=== PATIENT | male | born 1945 | race Asian ===

== ENCOUNTER 2017-01-07 10:15 | Emergency (ER) | payer OTHER ==
[2017-01-07 10:20] VITALS: BP 164/69; PULSE 63; TEMP 98.2; BMI 27.1
--- NOTE | 2017-01-07 11:01 | PDOC ---
History of Present Illness - General Chief Complaint: Abscess Boil Stated Complaint: BACK PAIN Time Seen by Provider: 01/07/17 10:30 History Source: Patient Exam Limitations: No Limitations - History of Present Illness Initial Comments: 01/07/17 10:51 Patient is a 71-year-old male history of insulin-dependent diabetes, GERD, enlarged prostate, hypertension, high cholesterol, hypothyroidism. She presents for evaluation of painful mass to back states he had it for the last week and it started as a small painful pimple now it's is larger, red, hard and well defined. Allergies: No known allergies Medications: See medication list Family History: Non-contributory Social History: Denies smoking, alcohol use, or IVDU Review of Systems GENERAL/CONSTITUTIONAL: No fever or chills. No weakness. No weight change. HEAD, EYES, EARS, NOSE AND THROAT: No change in vision. No ear pain or discharge. No sore throat. CARDIOVASCULAR: No chest pain or shortness of breath. RESPIRATORY: No cough, wheezing, or hemoptysis. GASTROINTESTINAL: No nausea, vomiting, diarrhea or constipation. No rectal bleeding. GENITOURINARY: No dysuria, frequency, or change in urination. MUSCULOSKELETAL: No joint or muscle swelling or pain. No neck or back pain. SKIN : Painful, palpable mass to mid upper back, just right of the spine HEMATOLOGIC/LYMPHATIC: No anemia, easy bleeding, or history of blood clots. No lymphadenopathy. ALLERGIC/IMMUNOLOGIC: No hives or skin allergy. No latex allergy. Physical Exam: GENERAL: The patient is awake, alert, and fully oriented, in no acute distress. LUNGS: Breath sounds equal, clear to auscultation bilaterally. No wheezes, and no crackles. HEART: Regular rate and rhythm, normal S1 and S2 without murmur, rub or gallop. ABDOMEN: Soft, nontender, normoactive bowel sounds. No guarding, no rebound. No masses. No bruising or abrasions MUSCULOSKELETAL: Normal range of motion, no edema. No clubbing or cyanosis. No cords, erythema, or tenderness. No CVA Tenderness with fist. NEUROLOGICAL: Cranial nerves II through XII grossly intact. Normal speech, normal gait. SKIN: Warm, Dry, normal turgor. There is a painful mass to mid upper back just right of the spine that measures approximately 3 cm in width and 3 cm in length , no fluctuance, no surrounding erythema or warmth, no evidence of cellulitis. Erythema to middle of area. Past History - Past Medical History Allergies/Adverse Reactions: Allergies Allergy/AdvReac Type Severity Reaction Status Date / Time No Known Drug Allergies Allergy Verified 01/07/17 10:16 Home Medications: Ambulatory Orders Dutasteride [Avodart] 0.5 mg PO DAILY 05/17/14 Glyburide/Metformin HCl [Glyburide-Metformin 5-500 mg] 2 each PO BID 05/28/14 Esomeprazole Magnesium 40 mg PO DAILY 01/30/16 Tamsulosin HCl [Flomax -] 0.4 mg PO BID 01/30/16 Escitalopram Oxalate [Lexapro -] 5 mg PO DAILY #30 tablet 02/01/16 Aspirin/Dipyridamole [Aggrenox -] 1 combo PO BID #60 capsule 02/05/16 Atenolol [Tenormin -] 1 tab PO DAILY #30 tablet 02/05/16 Atenolol [Tenormin -] 50 mg PO DAILY tablet 02/05/16 Insulin Detemir [Levemir Flextouch] 10 unit SQ HS #0 02/05/16 Insulin Sliding Scale [Novolog Vial Sliding Scale -] 1 vial SQ ACHS units 02/04 Losartan Potassium [Cozaar -] 1 tab PO DAILY #30 tablet 02/05/16 Rosuvastatin [Crestor -] 1 tab PO HS #30 tablet 02/05/16 Clindamycin [Cleocin -] 300 mg PO Q6HPO #40 capsule 01/07/17 Anemia: No Asthma: No Cancer: No Cardiac Disorders: No CVA: No COPD: No CHF: No Dementia: No Diabetes: Yes GI Disorders: Yes (GERD) Disorders: Yes (ENLARGED PROSTATE) HTN: Yes Hypercholesterolemia: Yes Liver Disease: No Suicide Attempt (Hx): No Seizures: No Thyroid Disease: Yes - Surgical History Abdominal Surgery: Yes (BILATERAL INGUINAL HERNIA) Appendectomy: No Cardiac Surgery: No Cholecystectomy: No Lung Surgery: No Neurologic Surgery: No Orthopedic Surgery: No - Family Disease History Family Disease History: Diabetes: Father, Heart Disease: Mother - Psycho/Social/Smoking Cessation Hx Anxiety: No Suicidal Ideation: No Smoking History: Never smoked Have you smoked in the past 12 months: No If you are a former smoker, when did you quit?: 30 YEARS AGO Information on smoking cessation initiated: No Hx Alcohol Use: No Drug/Substance Use Hx: No Substance Use Type: None Hx Substance Use Treatment: No *Physical Exam - Vital Signs Last Vital Signs Temp Pulse Resp BP Pulse Ox 98.2 F 63 18 164/69 98 01/07/17 10:18 01/07/17 10:18 01/07/17 10:18 01/07/17 10:18 01/07/17 10:18 Medical Decision Making - Medical Decision Making 01/07/17 11:49 A/P: Patient here for evaluation of abscess to back, area is not fluctuant patient reports that area started as a small little lump and has grown in the last several days. Patient states now notes painful when he lays on his back, there is mild erythema to central mass however there is no surrounding evidence of cellulitis. Case discussed with Dr. West will start patient on clindamycin patient with history of MRSA . Follow-up with either Dr. Rollins or return to emergency department in several days for i&D If any rash, patient to discontinue medication immediately return to ER, also explained to patient if area becomes more red, painful, fever, or new concerns need to return to ER I discussed the physical exam findings, ancillary test results and final diagnoses with the patient. I answered all of the patient's questions. The patient was satisfied with the care received and felt comfortable with the discharge plan and treatment plan. The patient will call to arrange follow-up and will return to the Emergency Department with any new, persistent or worsening symptoms. 01/07/17 12:00 01/07/17 12:01 *DC/Admit/Observation/Transfer Diagnosis at time of Disposition: Abscess - Discharge Dispostion Disposition: HOME Condition at time of disposition: Good Admit: No - Prescriptions Prescriptions: Clindamycin [Cleocin -] 300 mg PO Q6HPO #40 capsule - Referrals Referrals: Timo West MD [Primary Care Provider] - Karri Rollins MD [Staff Physician] - (Dr. Karri Rollins, surgeon [address], [address] floor [place], [place] Tuesdays and Wednesdays between 9 AM and 1 PM Please call [phone] for 24-hour voicemail they will return or call) - Patient Instructions Additional Instructions: Please apply warm soaks to area Please start antibiotics in 3 days if area appears soft follow-up in ER or you may call Dr. Rollins to schedule appointment within the next 3-4 days. Area may need incision and drainage. If any increased redness, swelling, fever, or any other concerns return to ER
== END 2017-01-07 11:08 | disposition home or self-care (01) ==
LOC: JERFT 10:15
DX: L02.212 Cutaneous abscess of back [any part, except buttock and flank] (principal); E11.9 Type 2 diabetes mellitus without complications; Z79.4 Long term (current) use of insulin; K21.9 Gastro-esophageal reflux disease without esophagitis; N40.0 Benign prostatic hyperplasia without lower urinary tract symptoms; I10 Essential (primary) hypertension; E78.00 Pure hypercholesterolemia, unspecified; E03.9 Hypothyroidism, unspecified; Z79.82 Long term (current) use of aspirin; Z86.14 Personal history of Methicillin resistant Staphylococcus aureus infection
CPT/HCPCS: 99281-25

== ENCOUNTER 2017-01-13 11:27 | Emergency (ER) | payer OTHER ==
[2017-01-13 11:36] VITALS: BP 154/72; PULSE 63; TEMP 98.7; BMI 28.8
--- NOTE | 2017-01-13 14:17 | PDOC ---
History of Present Illness - General Chief Complaint: Abscess Boil Stated Complaint: BACK PAIN Time Seen by Provider: 01/13/17 13:36 History Source: Patient Exam Limitations: No Limitations - History of Present Illness Initial Comments: 01/13/17 14:28 71-year-old male presents to the emergency room for evaluation of worsening right upper back abscess. Patient states was seen here last week and was placed on antibiotic which she completed and then was seen by Dr. Rollins who stated to follow-up in one week. Patient states symptoms have worsened and Dr. West recommended that he come to the ER for further evaluation. Patient denies fever , chills and states his glucose has been within normal limits. Patient denies history of MRSA. Timing/Duration: reports: getting worse Severity: Yes: moderate Location: reports: other Respiratory Risk Factors: reports: no cause identified Associated Symptoms: reports: swelling/mass/lumps Past History - Travel Traveled outside of the country in the last 30 days: No Close contact w/someone who was outside of country & ill: No - Past Medical History Allergies/Adverse Reactions: Allergies Allergy/AdvReac Type Severity Reaction Status Date / Time No Known Drug Allergies Allergy Verified 01/13/17 11:33 Home Medications: Ambulatory Orders Dutasteride [Avodart] 0.5 mg PO DAILY 05/17/14 Glyburide/Metformin HCl [Glyburide-Metformin 5-500 mg] 2 each PO BID 05/28/14 Esomeprazole Magnesium 40 mg PO DAILY 01/30/16 Tamsulosin HCl [Flomax -] 0.4 mg PO BID 01/30/16 Escitalopram Oxalate [Lexapro -] 5 mg PO DAILY #30 tablet 02/01/16 Aspirin/Dipyridamole [Aggrenox -] 1 combo PO BID #60 capsule 02/05/16 Atenolol [Tenormin -] 1 tab PO DAILY #30 tablet 02/05/16 Atenolol [Tenormin -] 50 mg PO DAILY tablet 02/05/16 Insulin Detemir [Levemir Flextouch] 10 unit SQ HS #0 02/05/16 Insulin Sliding Scale [Novolog Vial Sliding Scale -] 1 vial SQ ACHS units 02/04 Losartan Potassium [Cozaar -] 1 tab PO DAILY #30 tablet 02/05/16 Rosuvastatin [Crestor -] 1 tab PO HS #30 tablet 02/05/16 Clindamycin [Cleocin -] 300 mg PO Q6HPO #40 capsule 01/07/17 Anemia: No Asthma: No Cancer: No Cardiac Disorders: No CVA: No COPD: No CHF: No Dementia: No Diabetes: Yes GI Disorders: Yes (GERD) Disorders: Yes (ENLARGED PROSTATE) HTN: Yes Hypercholesterolemia: Yes Liver Disease: No Suicide Attempt (Hx): No Seizures: No Thyroid Disease: Yes - Surgical History Abdominal Surgery: Yes (BILATERAL INGUINAL HERNIA) Appendectomy: No Cardiac Surgery: No Cholecystectomy: No Lung Surgery: No Neurologic Surgery: No Orthopedic Surgery: No - Family Disease History Family Disease History: Diabetes: Father, Heart Disease: Mother - Psycho/Social/Smoking Cessation Hx Anxiety: No Suicidal Ideation: No Smoking History: Never smoked Have you smoked in the past 12 months: No If you are a former smoker, when did you quit?: 30 YEARS AGO Information on smoking cessation initiated: No Hx Alcohol Use: No Drug/Substance Use Hx: No Substance Use Type: None Hx Substance Use Treatment: No Patient Lives Alone: No Lives with/in: spouse/SO Review of Systems - Review of Systems Able to Perform ROS?: Yes Constitutional: No: Chills HEENTM: No: Symptoms Reported Musculoskeletal: No: Symptoms Reported Integumentary: Yes: Lumps Neurological: No: Symptoms reported *Physical Exam - Vital Signs Last Vital Signs Temp Pulse Resp BP Pulse Ox 98.7 F 63 18 154/72 100 01/13/17 11:33 01/13/17 11:33 01/13/17 11:33 01/13/17 11:33 01/13/17 11:33 - Physical Exam General Appearance: Yes: Nourished, Appropriately Dressed. No: Apparent Distress HEENT: negative: Pale Conjunctivae Neck: positive: Supple. negative: Lymphadenopathy (R), Lymphadenopathy (L) Respiratory/Chest: positive: Lungs Clear, Normal Breath Sounds. negative: Respiratory Distress, Accessory Muscle Use Cardiovascular: positive: Regular Rhythm, Regular Rate. negative: Murmur Integumentary: positive: Other (3 x 3 cm red raised erythematous warm mass to the right upper back medial of the mid scapular line. Noted fluctuance to center And draining small amount of purulent fluid. Surrounding skin intact.) Neurologic: positive: Motor Strength 5/5 (ambulatory) Procedures - Incision and Drainage I&D Site: Right: Other Betadine cleansed: No Anesthesia: 1% Lidocaine Blade Size: 11 Iodinated Packin/ in Plain Packing: No Complications: none Dressing: No ED Treatment Course - LABORATORY CBC & Chemistry Diagram: 01/13/17 15:05 01/13/17 15:05 Medical Decision Making - Medical Decision Making 01/13/17 16:12 Laboratory Tests 02/05/16 01/13/17 01/13/17 05:50 15:05 15:05 WBC 10.9 H D Hgb 12.8 Hct 38.6 Neutrophils % Y Neutrophils % (Manual) 41 L Lymphocytes % (Manual) 21 Monocytes % (Manual) 5 Eosinophils % (Manual) 33 H Platelet Estimate Adequate Sodium 137 Potassium 4.4 5.6 H D Chloride 102 Carbon Dioxide 28 Anion Gap 7 L BUN 22 H D Creatinine 1.5 H Random Glucose 304 H* D AST 13 L D ALT 28 D 01/13/17 16:30 Patient here for evaluation of right upper back abscess Currently on day 5 of 10 of clindamycin. Patient was seen by Dr. Rollins late last week who told him to follow-up this week for evaluation. Patient states pain to the area has worsened and concerned that the swelling and redness has not decreased significantly. Patient is a known diabetic and states his BGM this morning was 254. Patient ordered for CBC, comp and ultrasound was done at bedside which showed collection measuring 1 x 2 cm. I and D was done with packing placed to wound without difficulty. Upon reviewing patient's labs patient had elevated potassium of 5.6 with a BUN creatinine of 22 1.5. Patient also with a mildly elevated glucose of 304. Patient ordered for 15 g of Kayexalate along with 1 L of normal saline. Patient at this point can be discharged after completion of medication and may follow-up with Dr. West and return to the ED in 2 days for packing removal. Patient is to continue his antibiotics as previously prescribed. *DC/Admit/Observation/Transfer Diagnosis at time of Disposition: Hyperkalemia, Abscess of back, Encounter for incision and drainage procedure - Discharge Dispostion Disposition: HOME Condition at time of disposition: Improved - Referrals Referrals: Timo West MD [Primary Care Provider] - Karri Rollins MD [Staff Physician] - - Patient Instructions Printed Discharge Instructions: DI for Incision and Drainage of a Skin Abscess Additional Instructions: Please return here in 2 days for packing removal. Please continue taking your clindamycin. Please return to ED if symptoms worsen.
[2017-01-13 15:13] LABS: MCH 28.4 pg (25.7-33.7); MCHC 33.1 g/dl (32.0-35.9); MEAN CELL VOLUME 85.8 fl (80-96); MEAN PLT VOLUME 9.2 fl (7.5-11.1); PLATELET COUNT 233 K/MM3 (134-434); RDW 14.5 % (11.9-15.9); WHITE BLOOD COUNT 10.9 K/mm3 (4.0-10.0)
[2017-01-13 15:38] LABS: ALBUMIN 3.9 g/dl (3.4-5.0); ALK PHOS 103 U/L (45-117); ANION GAP 7 (8-16); BILIRUBIN,TOTAL 0.4 mg/dL (0.2-1.0); CALCIUM 9.1 mg/dL (8.5-10.1); CO2 28 mmol/L (21-32); CREATININE 1.5 mg/dL (0.7-1.3); SGOT/AST 13 U/L (15-37); SGPT/ALT 28 U/L (12-78); TOT PROT 7.9 g/dl (6.4-8.2)
[2017-01-13 15:40] LABS: PLATELET ESTIMATE ADEQUATE (NORMAL); TOTAL CELLS COUNTED 100
[2017-01-13 15:41] LABS: GLUCOSE,RANDOM 304 mg/dL (74-106)
[2017-01-13] MEDS ORDERED: SODIUM POLYSTYRENE SULFONATE 15 GM/60 ML BOTTLE PO ONE (16:27)
[2017-01-13] MEDS ORDERED: SODIUM CHLORIDE 1,000 ML IV STA (16:27)
[2017-01-13] MEDS ORDERED: SODIUM POLYSTYRENE SULFONATE 15 GM/60 ML BOTTLE ONE (16:37)
== END 2017-01-13 17:40 | disposition home or self-care (01) ==
LOC: JER 11:27
PROC: 0H96XZZ Drainage of Back Skin, External Approach (ICD-10-PCS; principal; 2017-01-13)
PROC: 3E0337Z Introduction of Electrolytic and Water Balance Substance into Peripheral Vein, Percutaneous Approach (ICD-10-PCS; 2017-01-13)
DX: L02.212 Cutaneous abscess of back [any part, except buttock and flank] (principal); E87.5 Hyperkalemia; E11.9 Type 2 diabetes mellitus without complications; Z79.4 Long term (current) use of insulin; Z79.84 Long term (current) use of oral hypoglycemic drugs; I10 Essential (primary) hypertension; E78.00 Pure hypercholesterolemia, unspecified; N40.0 Benign prostatic hyperplasia without lower urinary tract symptoms; E07.89 Other specified disorders of thyroid
CPT/HCPCS: 10060; 36415; 80053; 85025; 87070; 87205; 96360; 99283-25

== ENCOUNTER 2017-01-15 09:15 | Emergency (ER) | payer OTHER ==
[2017-01-15 09:19] VITALS: BP 158/71; PULSE 65; TEMP 98.8; BMI 27.1
--- NOTE | 2017-01-15 09:53 | PDOC ---
History of Present Illness - General Chief Complaint: Revisit,Wound Recheck Stated Complaint: REVISIT Time Seen by Provider: 01/15/17 09:39 History Source: Patient Exam Limitations: No Limitations - History of Present Illness Initial Comments: 01/15/17 09:54 71-year-old male history of hypertension, high cholesterol, diabetes, hypothyroidism presents to the emergency room for evaluation of right upper back abscess, I&D performed on 01/13/2017. Patient received today packing was removed, still with pustulant drainage. Dry dressing applied, call Dr. Rollins arrange for patient to be seen next Friday at 2:40 PM. Does have known history of MRSA we'll continue on Bactrim, also ordered Bactroban. Patient denies fever , chills and states his glucose has been within normal limits. Old chart reviewed patient with history of MRSA. Wound culture performed on 01/13/2017 with no growth. 01/15/17 10:00 Timing/Duration: reports: week Severity: Yes: moderate Location: reports: other (back) Past History - Past Medical History Allergies/Adverse Reactions: Allergies Allergy/AdvReac Type Severity Reaction Status Date / Time No Known Drug Allergies Allergy Verified 01/15/17 09:19 Home Medications: Ambulatory Orders Dutasteride [Avodart] 0.5 mg PO DAILY 05/17/14 Glyburide/Metformin HCl [Glyburide-Metformin 5-500 mg] 2 each PO BID 05/28/14 Esomeprazole Magnesium 40 mg PO DAILY 01/30/16 Tamsulosin HCl [Flomax -] 0.4 mg PO BID 01/30/16 Escitalopram Oxalate [Lexapro -] 5 mg PO DAILY #30 tablet 02/01/16 Aspirin/Dipyridamole [Aggrenox -] 1 combo PO BID #60 capsule 02/05/16 Atenolol [Tenormin -] 1 tab PO DAILY #30 tablet 02/05/16 Atenolol [Tenormin -] 50 mg PO DAILY tablet 02/05/16 Insulin Detemir [Levemir Flextouch] 10 unit SQ HS #0 02/05/16 Insulin Sliding Scale [Novolog Vial Sliding Scale -] 1 vial SQ ACHS units 02/04 Losartan Potassium [Cozaar -] 1 tab PO DAILY #30 tablet 02/05/16 Rosuvastatin [Crestor -] 1 tab PO HS #30 tablet 02/05/16 Clindamycin [Cleocin -] 300 mg PO Q6HPO #40 capsule 01/07/17 Mupirocin Cream [Bactroban 2% Cream -] 1 applic TP BID #1 tube 01/15/17 Oxycodone HCl/Acetaminophen [Percocet 5-325 mg Tablet] 1 tab PO Q6H #10 tablet MDD 4 01/15/17 Anemia: No Asthma: No Cancer: No Cardiac Disorders: No CVA: No COPD: No CHF: No Dementia: No Diabetes: Yes GI Disorders: Yes (GERD) Disorders: Yes (ENLARGED PROSTATE) HTN: Yes Hypercholesterolemia: Yes Liver Disease: No Suicide Attempt (Hx): No Seizures: No Thyroid Disease: Yes - Surgical History Abdominal Surgery: Yes (BILATERAL INGUINAL HERNIA) Appendectomy: No Cardiac Surgery: No Cholecystectomy: No Lung Surgery: No Neurologic Surgery: No Orthopedic Surgery: No - Family Disease History Family Disease History: Diabetes: Father, Heart Disease: Mother - Psycho/Social/Smoking Cessation Hx Anxiety: No Suicidal Ideation: No Smoking History: Never smoked Have you smoked in the past 12 months: No If you are a former smoker, when did you quit?: 30 YEARS AGO Hx Alcohol Use: No Drug/Substance Use Hx: No Substance Use Type: None Hx Substance Use Treatment: No Review of Systems - Review of Systems Constitutional: No: Symptoms Reported Respiratory: No: Symptoms reported Cardiac (ROS): No: Symptoms Reported Musculoskeletal: No: Symptoms Reported Integumentary: Yes: Other (lesion to right posterior back. No surrounding cellulitis. PLaque like rash to hands, c/w psoriasis) Hematologic/Lymphatic: No: Symptoms Reported All Other Systems: Reviewed and Negative *Physical Exam - Vital Signs Last Vital Signs Temp Pulse Resp BP Pulse Ox 98.8 F 65 18 158/71 99 01/15/17 09:01/15/17 09:16 01/15/17 09:16 01/15/17 09:01/15/17 09:16 - Physical Exam General Appearance: Yes: Appropriately Dressed. No: Apparent Distress Respiratory/Chest: positive: Lungs Clear, Normal Breath Sounds Cardiovascular: positive: Regular Rhythm, Regular Rate Lymphatic: negative: Adenopathy Integumentary: negative: Erythema *DC/Admit/Observation/Transfer Diagnosis at time of Disposition: Abscess of back, Wound check, abscess - Discharge Dispostion Disposition: HOME Condition at time of disposition: Good Admit: No - Prescriptions Prescriptions: Mupirocin Cream [Bactroban 2% Cream -] 1 applic TP BID #1 tube Oxycodone HCl/Acetaminophen [Percocet 5-325 mg Tablet] 1 tab PO Q6H #10 tablet MDD 4 - Patient Instructions Printed Discharge Instructions: How to Care for a Surgical Wound Additional Instructions: PLease keep area clean and dry Please change dressing daily apply dime size area of cream to gauze then applied to wound. Make sure to wash area with warm water twice a day, allow to air dry before new application of dressing Follow-up Dr. Rollins next Friday on January 21 at 2:40 PM. Continue to take antibiotics as ordered If any fever, increased redness, or any other concerns return to ER May take Percocet for pain, please make sure to not drive car or walk after taking medication, may cause dizziness
== END 2017-01-15 10:21 | disposition home or self-care (01) ==
LOC: JERFT 09:15
DX: L02.212 Cutaneous abscess of back [any part, except buttock and flank] (principal); Z48.01 Encounter for change or removal of surgical wound dressing; I10 Essential (primary) hypertension; E11.9 Type 2 diabetes mellitus without complications; Z79.4 Long term (current) use of insulin; E78.00 Pure hypercholesterolemia, unspecified; E03.9 Hypothyroidism, unspecified
CPT/HCPCS: 99281-25

== ENCOUNTER 2017-08-11 10:08 | Emergency (ER) | payer OTHER ==
[2017-08-11 10:14] VITALS: BMI 27.1
--- NOTE | 2017-08-11 10:29 | PDOC ---
History of Present Illness - General History Source: Patient Exam Limitations: No Limitations - History of Present Illness Initial Comments: 08/11/17 11:12 The patient is a 71 year old male, with a significant past medical history of hypertension, diabetes mellitus, hypothyroidism, high cholesterol, who presents to the emergency department with, decreased urinary frequency for approx. 15 days. The patient denies dysuria but states when he urinates approx 2-3x per day only a little bit or urine comes out. The patient also states he has pain when pulling back the foreskin. The patient states he has mild intermittent suprapubic abdominal pain secondary to the decreased urinary frequency rated 2/ 10 in intensity. He denies any recent fevers, chills, headache or dizziness. He denies any recent nausea, vomit, diarrhea or constipation. He denies any recent chest pain or shortness of breath. He denies any recent dysuria or hematuria. Allergies: NKDA Social History: Former smoker - quit 30 years ago. Primary Care Physician: Dr. West Urologist: Dr. Cesar Avila <Barry Cervantes - Last Filed: 08/11/17 12:29> <Judith Frausto - Last Filed: 08/11/17 14:29> - General Chief Complaint: Urinary Problem Stated Complaint: PELVIC PAIN Time Seen by Provider: 08/11/17 10:26 Past History <Barry Cervantes - Last Filed: 08/11/17 12:29> - Past Medical History Anemia: No Asthma: No Cancer: No Cardiac Disorders: No CVA: No COPD: No CHF: No DVT: No Dementia: No Diabetes: Yes GI Disorders: Yes (GERD) Disorders: Yes (ENLARGED PROSTATE) HTN: Yes Hypercholesterolemia: Yes Liver Disease: No Seizures: No Thyroid Disease: Yes - Surgical History Abdominal Surgery: Yes (BILATERAL INGUINAL HERNIA) Appendectomy: No Cardiac Surgery: No Cholecystectomy: No Lung Surgery: No Neurologic Surgery: No Orthopedic Surgery: No - Family Disease History Family Disease History: Diabetes: Father, Heart Disease: Mother - Suicide/Smoking/Psychosocial Hx Smoking History: Never smoked Have you smoked in the past 12 months: No If you are a former smoker, when did you quit?: 30 YEARS AGO Hx Alcohol Use: No Drug/Substance Use Hx: No Substance Use Type: None Hx Substance Use Treatment: No <Judith Frausto - Last Filed: 08/11/17 14:29> - Past Medical History Allergies/Adverse Reactions: Allergies Allergy/AdvReac Type Severity Reaction Status Date / Time No Known Drug Allergies Allergy Verified 08/11/17 10:10 Home Medications: Ambulatory Orders Dutasteride [Avodart] 0.5 mg PO DAILY 05/17/14 Glyburide/Metformin HCl [Glyburide-Metformin 5-500 mg] 2 each PO BID 05/28/14 Esomeprazole Magnesium 40 mg PO DAILY 01/30/16 Tamsulosin HCl [Flomax -] 0.4 mg PO BID 01/30/16 Escitalopram Oxalate [Lexapro -] 5 mg PO DAILY #30 tablet 02/01/16 Aspirin/Dipyridamole [Aggrenox -] 1 combo PO BID #60 capsule 02/05/16 Atenolol [Tenormin -] 1 tab PO DAILY #30 tablet 02/05/16 Atenolol [Tenormin -] 50 mg PO DAILY tablet 02/05/16 Insulin Detemir [Levemir Flextouch] 10 unit SQ HS #0 02/05/16 Insulin Sliding Scale [Novolog Vial Sliding Scale -] 1 vial SQ ACHS units 02/04 Losartan Potassium [Cozaar -] 1 tab PO DAILY #30 tablet 02/05/16 Rosuvastatin [Crestor -] 1 tab PO HS #30 tablet 02/05/16 Clindamycin [Cleocin -] 300 mg PO Q6HPO #40 capsule 01/07/17 Mupirocin Cream [Bactroban 2% Cream -] 1 applic TP BID #1 tube 01/15/17 Oxycodone HCl/Acetaminophen [Percocet 5-325 mg Tablet] 1 tab PO Q6H #10 tablet MDD 4 01/15/17 Cephalexin [Keflex] 500 mg PO BID #14 capsule 08/11/17 Clotrimazole [Antifungal] 14 gm TP BID #1 cream..g. 08/11/17 Review of Systems - Review of Systems Comments:: 08/11/17 11:13 GENERAL/CONSTITUTIONAL: No fever or chills. No weakness. HEAD, EYES, EARS, NOSE AND THROAT: No change in vision. No ear pain or discharge. No sore throat. GASTROINTESTINAL: No nausea, vomiting, diarrhea or constipation. GENITOURINARY: +Decreased frequency. +Pain associated with foreskin. No dysuria. CARDIOVASCULAR: No chest pain or shortness of breath. RESPIRATORY: No cough, wheezing, or hemoptysis. MUSCULOSKELETAL: No joint or muscle swelling or pain. No neck or back pain. SKIN: No rash NEUROLOGIC: No headache, vertigo, loss of consciousness, or change in strength/ sensation. ENDOCRINE: No increased thirst. No abnormal weight change. HEMATOLOGIC/LYMPHATIC: No anemia, easy bleeding, or history of blood clots. ALLERGIC/IMMUNOLOGIC: No hives or skin allergy. <BillyBarry - Last Filed: 08/11/17 12:29> *Physical Exam - Vital Signs Last Vital Signs Temp Pulse Resp BP Pulse Ox 98.0 F 76 18 150/73 99 08/11/17 10:12 08/11/17 10:12 08/11/17 10:12 08/11/17 10:12 08/11/17 10:12 - Physical Exam Comments: 08/11/17 11:18 Constitutional: Awake, alert, oriented. No acute distress. Head: Normocephalic. Atraumatic Eyes: PERRL. EOMI. Conjunctivae are not pale. ENT: Mucous membranes are moist and intact. Posterior pharynx without exudates or erythema. Uvula midline. Neck: Supple. Full ROM. No lymphadenopathy. Cardiovascular: Regular rate. Regular rhythm. S1, S2 regular. Distal pulses are 2+ and symmetric. Pulmonary/Chest: No evidence of respiratory distress. Clear to auscultation bilaterally No wheezing, rales or rhonchi. Abdominal: Soft and non-distended. There is no tenderness. No rebound, guarding or rigidity. No organomegaly. No palpable masses. Good bowel sounds. Pelvic: (+) Balanitis under foreskin and tip of penis with mild erythema. (+) Mild pain with retracting back foreskin. Back: No CVA tenderness. Musculoskeletal: No edema. No cyanosis. No clubbing. Full range of motion in all extremities. No calf tenderness. Radial/pedal pulses are intact and 2+ bilaterally Skin: Skin is warm and dry. No petechiae. No purpura. Neurological: Alert and oriented to person, place, and time. Cranial nerves II -XII are grossly intact. Normal speech. Strength is grossly symmetric. No sensory deficits. Psychiatric: Good eye contact. Normal interaction, affect and behavior. <Barry Cervantes - Last Filed: 08/11/17 12:29> - Vital Signs Last Vital Signs Temp Pulse Resp BP Pulse Ox 98.0 F 76 18 150/73 99 08/11/17 10:12 08/11/17 10:12 08/11/17 10:12 08/11/17 10:12 08/11/17 10:12 <Judith Frausto - Last Filed: 08/11/17 14:29> ED Treatment Course - LABORATORY CBC & Chemistry Diagram: 08/11/17 11:50 08/11/17 11:50 <Barry Cervantes - Last Filed: 08/11/17 12:29> - LABORATORY CBC & Chemistry Diagram: 08/11/17 11:50 08/11/17 11:50 <Judith Frausto - Last Filed: 08/11/17 14:29> Medical Decision Making - Medical Decision Making 08/11/17 12:[address] Cesar Avila at 11:40 am. Case discussed. <Barry Cervantes - Last Filed: 08/11/17 12:29> - Medical Decision Making 08/11/17 11:52 a/p: 71yo male with difficulty urinating -balanitis on exam, will start antifungals -will check labs and ua -will discuss case with Dr. Avila -will monitor and reassess 08/11/17 11:[address] Avila - recommends sending patient to the office by 530p if labs nonacute for urology eval 08/11/17 12:39 pt with elevated blood glucose - insulin dependent. no signs of dka. will add insulin sq and ivf hydration discussed labs with the patient and his family discussed plan to send patient to urology - Dr. avila after improving glucose fluconazole given for balanitis keflex given for balanitis and uti will send Rx to pharmacy for topical antifungal and keflex pt understands instructions will continue to monitor and reassess glucose prior to d/c 08/11/17 14:28 repeat glucose 241. stable for d/c to home answered all questions. prescriptions sent to pharmacy. will go to Dr. Avila office now. <Judith Frausto - Last Filed: 08/11/17 14:29> *DC/Admit/Observation/Transfer - Attestations Scribe Attestion: 08/11/17 11:14 Documentation prepared by Barry Cervantes, acting as medical insurance claims specialist for Judith Frausto DO. <Barry Cervantes - Last Filed: 08/11/17 12:29> - Discharge Dispostion Admit: No - Attestations Physician Attestion: 08/11/17 12:47 I, Dr. Judith Frausto DO, attest that this document has been prepared under my direction and personally reviewed by me in its entirety. I further attest, that it accurately reflects all work, treatment, procedures and medical decision -making performed by me. <Judith Frausto - Last Filed: 08/11/17 14:29> Diagnosis at time of Disposition: Balanitis, UTI (urinary tract infection) - Discharge Dispostion Disposition: HOME Condition at time of disposition: Stable - Prescriptions Prescriptions: Cephalexin [Keflex] 500 mg PO BID #14 capsule Clotrimazole [Antifungal] 14 gm TP BID #1 cream..g. - Referrals Referrals: Cesar Avila MD [Staff Physician] - Timo West MD [Staff Physician] - - Patient Instructions Printed Discharge Instructions: DI for Urinary Tract Infection (UTI), DI for Balanitis Additional Instructions: Please take and use all medications as prescribed. Please go straight from the ED to the urologist office for evaluation today. Please make an appointment to see your PMD this week. Please return to the ED with any further concerns.
[2017-08-11 11:33] LABS: URINE APPEARANCE CLOUDY; URINE BILIRUBIN NEGATIVE (NEGATIVE); URINE BLOOD 1+ (NEGATIVE); URINE COLOR YELLOW; URINE GLUCOSE (UA) 3+ (NEGATIVE); URINE KETONE NEGATIVE (NEGATIVE); URINE NITRITE NEGATIVE (NEGATIVE); URINE UROBILINOGEN NEGATIVE mg/dL (0.2-1.0)
[2017-08-11 11:34] LABS: URINE LEUK ESTERASE 2+ (NEGATIVE); URINE PROTEIN 3+ (NEGATIVE)
[2017-08-11 11:49] LABS: EPI CELLS FEW /HPF (FEW); URINE BACTERIA RARE /hpf (NONE SEEN); URINE HYALINE CAST 20 /lpf; URINE MUCUS RARE; YEAST RARE
[2017-08-11] MEDS ORDERED: FLUCONAZOLE 50 MG TABLET PO ONE (11:56)
[2017-08-11] MEDS ORDERED: CEPHALEXIN MONOHYDRATE 500 MG CAPSULE (UD) PO ONE (11:56)
[2017-08-11] MEDS ORDERED: CEPHALEXIN MONOHYDRATE 250 MG CAPSULE (FP) ONE (11:59)
[2017-08-11] MEDS ORDERED: FLUCONAZOLE 100 MG TABLET (UD) ONE (11:59)
[2017-08-11 12:00] LABS: BASO % 0.9 % (0-2.0); EOS % 10.4 % (0-4.5); HEMATOCRIT 37.3 % (35.4-49); HEMOGLOBIN 12.2 GM/dL (11.7-16.9); LYMPH % 17.2 % (8-40); MCH 27.4 pg (25.7-33.7); MCHC 32.8 g/dl (32.0-35.9); MEAN CELL VOLUME 83.7 fl (80-96); MEAN PLT VOLUME 8.6 fl (7.5-11.1); MONO % 8.7 % (3.8-10.2); NEUT % 62.8 % (42.8-82.8); PLATELET COUNT 253 K/MM3 (134-434); RBC 4.46 M/mm3 (4.00-5.60); RDW 15.5 % (11.9-15.9); WHITE BLOOD COUNT 7.9 K/mm3 (4.0-10.0)
[2017-08-11 12:22] LABS: ALBUMIN 3.6 g/dl (3.4-5.0); ALK PHOS 97 U/L (45-117); ANION GAP 7 (8-16); BILIRUBIN,TOTAL 0.3 mg/dL (0.2-1.0); BLOOD UREA NITROGEN 19 mg/dL (7-18); CALCIUM 8.5 mg/dL (8.5-10.1); CHLORIDE 102 mmol/L (98-107); CO2 27 mmol/L (21-32); CREATININE 1.5 mg/dL (0.7-1.3); POTASSIUM 4.2 mmol/L (3.5-5.1); SGOT/AST 14 U/L (15-37); SGPT/ALT 26 U/L (12-78); SODIUM 136 mmol/L (136-145); TOT PROT 7.8 g/dl (6.4-8.2)
[2017-08-11 12:26] LABS: GLUCOSE,RANDOM 341 mg/dL (74-106)
[2017-08-11] MEDS ORDERED: Insulin (LOG) Aspart 100 UNITS/ML VIAL SQ ONE (12:28)
[2017-08-11] MEDS ORDERED: SODIUM CHLORIDE 0.9% 1000 ML INFUS.BAG IV ONE (12:28)
[2017-08-11] MEDS ORDERED: INSULIN REGULAR HUMAN 100 UNITS/ML *VIAL ONE (12:42)
[2017-08-11 15:02] VITALS: BP 141/87; PULSE 78; TEMP 98.5
== END 2017-08-11 15:02 | disposition home or self-care (01) ==
LOC: JER 10:08
PROC: 3E013VG Introduction of Insulin into Subcutaneous Tissue, Percutaneous Approach (ICD-10-PCS; principal; 2017-08-11)
DX: N39.0 Urinary tract infection, site not specified (principal); N48.1 Balanitis; I10 Essential (primary) hypertension; E11.9 Type 2 diabetes mellitus without complications; Z79.4 Long term (current) use of insulin; Z79.84 Long term (current) use of oral hypoglycemic drugs; E03.9 Hypothyroidism, unspecified; E78.00 Pure hypercholesterolemia, unspecified; N40.0 Benign prostatic hyperplasia without lower urinary tract symptoms; Z87.891 Personal history of nicotine dependence
CPT/HCPCS: 36415; 80053; 81003; 81015; 82962; 85025; 87086; 99281-25; J7030

== ENCOUNTER 2017-11-27 22:57 | Inpatient (IN) | payer OTHER ==
--- NOTE | 2017-11-27 23:04 | PDOC ---
Attending Attestation - HPI HPI: 11/27/17 23:52 The patient is a 72 year old male brought via EMS and presenting with his , with a significant past medical history of EtOH abuse, HTN, HLD, and DM, who presents to the ED complaining of alcohol intoxication. The patients states that she was at work when she received a call from her telling her that he does not feel well. She arrived home and found the patient in an altered mental status and smelling like alcohol. She called EMS. The patient had multiple episodes of vomit today. Allergies: None Past surgical history: Bilateral inguinal hernia Social History: Alcohol use. - Physicial Exam PE: 11/27/17 23:57 Constitutional: Awake and intoxicated. Smells like alcohol. Head: Normocephalic. Atraumatic Eyes: PERRL. EOMI. Conjunctivae are not pale. ENT: Mucous membranes are moist and intact. Posterior pharynx without exudates or erythema. Uvula midline. Neck: Supple. Full ROM. No lymphadenopathy. Cardiovascular: (+) Systolic ejection murmur. Distal pulses are 2+ and symmetric. Pulmonary/Chest: (+) Coarse breath sounds bilaterally. Abdominal: Soft and non-distended. There is no tenderness. No rebound, guarding or rigidity. No organomegaly. No palpable masses. Good bowel sounds. Back: No CVA tenderness. Musculoskeletal: No edema. No cyanosis. No clubbing. Full range of motion in all extremities. Nocalf tenderness. Radial/pedal pulses are intact and 2+ bilaterally Skin: Skin is warm and dry. No petechiae. No purpura. Neurological: (+) Deferred due to patient intoxication. Psychiatric: Good eye contact. Normal interaction, affect and behavior. <Bertram Tran - Last Filed: 11/28/17 01:31> - Resident Resident Name: Kodi Tan - ED Attending Attestation I have performed the following: I have examined & evaluated the patient, The case was reviewed & discussed with the resident, I agree w/resident's findings & plan, Exceptions are as noted - Medical Decision Making 11/27/17 23:04 I, Dr. Judith Frausto, DO, attest that this document has been prepared under my direction and personally reviewed by me in its entirety. I further attest, that it accurately reflects all work, treatment, procedures and medical decision -making performed by me. 11/28/17 00:58 a/p: 72yo male with alcohol intoxication brought in for etoh use and elevated glu -pt with etoh use today -called altered -brought to the ED for eval of AMS -will do labs, head ct, vbg, acetone, ua, uds, ASA, -ekg -cxr -will give banana bag -will give ivf hydration -bedside ultrasound negative for fluid in abd -will monitor and reassess 11/28/17 01:19 elevated lipase, etoh level, glucose will need admission for poss alcoholic panceratitis will continue with NPO, ivf hydraiton 11/28/17 01:30 11/28/17 01:[address] Gonzalez who accepts pt to service - tele acute alcohol intoxication head ct and abd ultrasound reads pending <Judith Frausto - Last Filed: 11/28/17 02:14> Discharge Disposition - Discharge Dispostion Last Admission D/C Date: 02/05/16 Decision to Admit order: Yes <Judith Frausto - Last Filed: 11/28/17 02:14> - Diagnosis Alcoholic, Altered mental status, Acute alcohol intoxication, Hyperglycemia, Acute kidney injury - Discharge Dispostion Condition at time of disposition: Guarded
--- NOTE | 2017-11-27 23:31 | PDOC ---
History of Present Illness - General Chief Complaint: Blood Sugar Problem Stated Complaint: INTOX Time Seen by Provider: 11/27/17 23:04 History Source: Spouse Exam Limitations: Clinical Condition - History of Present Illness Initial Comments: 11/27/17 23:19 The patient is a 72M with a PMH of EtOH abuse, HTN, HLD, and DM who presents to the ER altered. The history is provided by the patient's who is at bedside. The pt's states that she was at work when she got a call from her . The called her and states that he was not feeling well. She got home and saw him on the couch and called EMS. Per EMS, he was found at home to be intoxicated and altered, then vomited on them. No other history could be obtained. Past History - Past Medical History Allergies/Adverse Reactions: Allergies Allergy/AdvReac Type Severity Reaction Status Date / Time No Known Drug Allergies Allergy Verified 11/27/17 23:07 Home Medications: Ambulatory Orders Amlodipine Besylate 5 mg PO DAILY 11/28/17 Aspirin/Diphenhydramine Citrat [Ibis Pm Caplet] 1 each PO DAILY 11/28/17 Atenolol [Tenormin -] 100 mg PO DAILY 11/28/17 Dutasteride 0.5 mg PO DAILY 11/28/17 Glipizide [Glipizide ER] 10 mg PO DAILY 11/28/17 Insulin (Levemir) [Levemir Vial] 30 unit SQ AM 11/28/17 Insulin (Levemir) [Levemir Vial] 60 unit SQ HS 11/28/17 Levothyroxine Sodium [Synthroid] 88 mcg PO DAILY 11/28/17 Psyllium Husk [Daily Fiber] 0.52 gm PO DAILY 11/28/17 Simvastatin [Zocor -] 20 mg PO DAILY 11/28/17 Sitagliptin Phosphate [Januvia] 50 mg PO DAILY 11/28/17 Tamsulosin HCl 0.4 mg PO DAILY 11/28/17 Escitalopram Oxalate [Lexapro -] 5 mg PO DAILY #30 tablet 11/29/17 Multivitamin [Daily Multiple Vitamin] 1 each PO DAILY #30 tablet 11/29/17 Anemia: No Asthma: No Cancer: No Cardiac Disorders: No CVA: No COPD: No CHF: No DVT: No Dementia: No Diabetes: Yes GI Disorders: Yes (GERD) Disorders: Yes (ENLARGED PROSTATE) HTN: Yes Hypercholesterolemia: Yes Liver Disease: No Seizures: No Thyroid Disease: Yes - Surgical History Abdominal Surgery: Yes (BILATERAL INGUINAL HERNIA) Appendectomy: No Cardiac Surgery: No Cholecystectomy: No Lung Surgery: No Neurologic Surgery: No Orthopedic Surgery: No - Family Disease History Family Disease History: Diabetes: Father, Heart Disease: Mother - Suicide/Smoking/Psychosocial Hx Smoking History: Unknown if ever smoked Have you smoked in the past 12 months: No If you are a former smoker, when did you quit?: 30 YEARS AGO Information on smoking cessation initiated: No Hx Alcohol Use: No Drug/Substance Use Hx: No Substance Use Type: None Hx Substance Use Treatment: No Review of Systems - Review of Systems Able to Perform ROS?: No (intoxicated) Is the patient limited Portuguese proficient: No *Physical Exam - Vital Signs Last Vital Signs Temp Pulse Resp BP Pulse Ox 98.7 F 70 20 139/66 92 L 11/27/17 23:07 11/27/17 23:07 11/27/17 23:07 11/27/17 23:07 11/27/17 23:07 - Physical Exam Comments: 11/27/17 23:32 GENERAL: Well developed, well nourished. Disheveled, vomitus on shirt. HEENT: Normocephalic, atraumatic. Hearing grossly normal. Moist mucous membranes. PERRLA, EOMI. No conjunctival pallor. Sclera are non-icteric. NECK: Supple. Full ROM. No JVD. CARDIOVASCULAR: Regular rate and rhythm. No murmurs, rubs, or gallops. PULMONARY: No evidence of respiratory distress. Crackles in b/l lower lobes, possibly transmitted sounds. ABDOMINAL: Soft. Non-tender. Non-distended. No rebound or guarding. MUSCULOSKELETAL: Normal range of motion at all joints. No bony deformities or tenderness. EXTREMITIES: No cyanosis. No clubbing. No edema. No calf tenderness or swelling. SKIN: Warm and dry. Normal capillary refill. No rashes. No jaundice. NEUROLOGICAL: Alert, awake, appropriate. Cranial nerves 2-12 intact. Normal speech. Gait is normal without ataxia. PSYCHIATRIC: Cooperative. Good eye contact. Appropriate mood and affect. Heart Score/ECG Review #1 ECG reviewed & interpreted by me at: 23:16 General ECG Interpretation: Sinus Rhythm, Normal Rate, Normal Intervals, No acute ischemic changes Compared to previous ECG there are: No significant change 11/27/17 23:37 NSR vent rate 69 OR 174 QRS 92 QTc 439 No JEFFREY or STD changes noted. No signs of acute ischemia. ED Treatment Course - LABORATORY CBC & Chemistry Diagram: 11/29/17 06:35 11/29/17 06:35 - RADIOLOGY Radiology Studies Ordered: Category Date Time Status CHEST X-RAY PORTABLE* [RAD] Stat Radiology 11/27/17 23:10 Ordered Medical Decision Making - Medical Decision Making 11/27/17 23:39 The patient is a 72M with a PMH of EtOH abuse (unsure of how much the patient drank today and how much he drinks per day), HTN, and DM who presents to the ER altered. FS 400. Pending labs and CTH. I am concerned for possible ICH as the patient is altered and we cannot differentiate if he has fallen or not. denies any falls. 11/28/17 00:04 Pt signed out to Dr. Dudley. *DC/Admit/Observation/Transfer Diagnosis at time of Disposition: Alcoholic, Altered mental status, Acute alcohol intoxication, Hyperglycemia, Acute kidney injury - Discharge Dispostion Disposition: HOME Condition at time of disposition: Good - Prescriptions - Referrals - Patient Instructions - Post Discharge Activity
[2017-11-28 00:16] LABS: BASO % 0.8 % (0-2.0); EOS % 9.9 % (0-4.5); HEMATOCRIT 40.9 % (35.4-49); HEMOGLOBIN 13.2 GM/dL (11.7-16.9); LYMPH % 20.5 % (8-40); MCHC 32.3 g/dl (32.0-35.9); MEAN CELL VOLUME 83.6 fl (80-96); MEAN PLT VOLUME 9.2 fl (7.5-11.1); NEUT % 61.8 % (42.8-82.8); PLATELET COUNT 219 K/MM3 (134-434); RBC 4.89 M/mm3 (4.00-5.60); RDW 15.3 % (11.9-15.9); WHITE BLOOD COUNT 10.2 K/mm3 (4.0-10.0)
[2017-11-28] MEDS ORDERED: FOLIC ACID INJECTION - 1 MG, THIAMINE HCL 100 MG, MULTIVIT INJECTION ADULT 10 ML in SOD... IVPB ONE (00:27)
[2017-11-28] MEDS ORDERED: SODIUM CHLORIDE 0.9% 1000 ML INFUS.BAG IV ONE (00:37)
[2017-11-28 00:40] LABS: ALBUMIN 3.7 g/dl (3.4-5.0); ALK PHOS 99 U/L (45-117); ANION GAP 10 (8-16); BILIRUBIN,TOTAL 0.2 mg/dL (0.2-1.0); BLOOD UREA NITROGEN 24 mg/dL (7-18); CALCIUM 8.4 mg/dL (8.5-10.1); CHLORIDE 104 mmol/L (98-107); CO2 24 mmol/L (21-32); POTASSIUM 4.1 mmol/L (3.5-5.1); SGOT/AST 18 U/L (15-37); SGPT/ALT 30 U/L (12-78); SODIUM 138 mmol/L (136-145)
[2017-11-28 00:41] LABS: SALICYLATE < 1.70 mg/dL
[2017-11-28 00:46] LABS: ACETAMINOPHEN <2.0 ug/mL
[2017-11-28 00:53] LABS: ACETONE SERUM NEGATIVE (NEGATIVE)
[2017-11-28 00:55] LABS: GLUCOSE,RANDOM 393 mg/dL (74-106); LIPASE 481 U/L (73-393)
[2017-11-28 01:46] LABS: COCAINE, UR NEGATIVE ng/ml (CUTOFF=300); METHADONE, UR NEGATIVE ng/ml (CUTOFF=300); OPIATES, URI NEGATIVE ng/ml (CUTOFF=300); PHENCYCLIDINE,URINE NEGATIVE ng/ml (CUTOFF=25); URINE AMPHETAMINES NEGATIVE ng/ml (CUTOFF=500); URINE BARBITURATES NEGATIVE ng/ml (CUTOFF=200); URINE BENZODIAZEPINES NEGATIVE ng/ml (CUTOFF=200)
[2017-11-28] MEDS ORDERED: INSULIN (NOVOLOG) ASPART 100 UNITS/ML 10ML VIAL SQ ONE (01:57)
--- NOTE | 2017-11-28 02:21 | PDOC ---
*Physical Exam - Vital Signs Last Vital Signs Temp Pulse Resp BP Pulse Ox 98.7 F 70 20 139/66 92 L 11/27/17 23:07 11/27/17 23:07 11/27/17 23:07 11/27/17 23:07 11/27/17 23:07 ED Treatment Course - LABORATORY CBC & Chemistry Diagram: 11/28/17 00:03 11/28/17 00:03 - ADDITIONAL ORDERS Additional order review: Laboratory Results 11/28/17 11/28/17 11/28/17 00:55 00:03 00:03 Sodium Potassium Chloride Carbon Dioxide Anion Gap BUN Creatinine Creat Clearance w eGFR Random Glucose Lactic Acid 2.3 H* Calcium Total Bilirubin AST ALT Alkaline Phosphatase Total Protein Albumin Lipase Salicylates < 1.70 Opiates Screen Negative Methadone Screen Negative Acetaminophen <2.0 Barbiturate Screen Negative Phencyclidine Screen Negative Ur Amphetamines Screen Negative MDMA (Ecstasy) Screen Negative Benzodiazepines Screen Negative Cocaine Screen Negative U Marijuana (THC) Screen Negative Alcohol, Quantitative Acetone, Qual 11/28/17 00:03 Sodium 138 Potassium 4.1 Chloride 104 Carbon Dioxide 24 Anion Gap 10 BUN 24 H Creatinine 2.0 H Creat Clearance w eGFR 32.92 Random Glucose 393 H* Lactic Acid Calcium 8.4 L Total Bilirubin 0.2 AST 18 D ALT 30 Alkaline Phosphatase 99 Total Protein 8.0 Albumin 3.7 Lipase 481 H Salicylates Opiates Screen Methadone Screen Acetaminophen Barbiturate Screen Phencyclidine Screen Ur Amphetamines Screen MDMA (Ecstasy) Screen Benzodiazepines Screen Cocaine Screen U Marijuana (THC) Screen Alcohol, Quantitative 317.4 H* Acetone, Qual Negative 11/28/17 00:03 RBC 4.89 MCV 83.6 MCHC 32.3 RDW 15.3 MPV 9.2 Neutrophils % 61.8 Lymphocytes % 20.5 Monocytes % 7.0 Eosinophils % 9.9 H Basophils % 0.8 - Medications Given in the ED: ED Medications Discontinued Medications Generic Name Dose Route Start Last Admin Trade Name Freq PRN Reason Stop Dose Admin Sodium Chloride 1,000 ml 11/28/17 00:37 11/28/17 01:02 Normal Saline - IV 11/28/17 00:38 1,000 ml ONCE ONE Administration Medical Decision Making - Medical Decision Making 11/28/17 02:20 CT head: No acute brain parenchymal abnormality. No hemorrhage, mass or acute territorial infarct. Limited by motion artifact. age-related involutional changes. Chronic lacunar infarct internal capsule. *DC/Admit/Observation/Transfer Diagnosis at time of Disposition: Alcoholic, Altered mental status, Acute alcohol intoxication, Hyperglycemia, Acute kidney injury - Discharge Dispostion Condition at time of disposition: Guarded - Referrals - Patient Instructions - Post Discharge Activity
[2017-11-28] MEDS ORDERED: INSULIN (NOVOLOG) ASPART 100 UNITS/ML 10ML VIAL ONE ×2 (02:34→21:16)
[2017-11-28 02:41] LABS: VENOUS PC02 42.2 mmHg (38-52); VENOUS PH 7.31 (7.32-7.42)
[2017-11-28 03:01] LABS: URINE APPEARANCE CLEAR; URINE BILIRUBIN NEGATIVE (<2.0 mg/dL); URINE COLOR LTYELLOW; URINE GLUCOSE (UA) 3+ (NEGATIVE); URINE KETONE NEGATIVE (NEGATIVE); URINE LEUK ESTERASE NEGATIVE (NEGATIVE); URINE NITRITE NEGATIVE (NEGATIVE); URINE UROBILINOGEN NEGATIVE mg/dL (0.2-1.0)
[2017-11-28 03:21] LABS: URINE PROTEIN 3+ (NEGATIVE)
[2017-11-28] MEDS ORDERED: chlordiazePOXIDE HCL 25 MG CAPSULE PO PRN ×2 (03:24→04:57)
[2017-11-28 03:27] LABS: EPI CELLS RARE /HPF (FEW); URINE HYALINE CAST 4 /lpf; URINE MUCUS RARE
[2017-11-28] MEDS ORDERED: SODIUM CHLORIDE 1,000 ML IV SCH ×2 (03:30→17:05)
[2017-11-28] MEDS ORDERED: chlordiazePOXIDE HCL 25 MG CAPSULE PO SCH ×2 (05:00→11:00)
--- NOTE | 2017-11-28 05:25 | PN ---
Teaching Attending Note Name of Resident: Samy Gonzalez ATTENDING PHYSICIAN STATEMENT I saw and evaluated the patient. I reviewed the resident's note and discussed the case with the resident. I agree with the resident's findings and plan as documented. SUBJECTIVE: Patient is a 72 nya old man with a history of EtOH abuse, HTN, HLD, and DM who presents to the ER intoxicated. The history is provided by the patient's who is at bedside. The pt's states that she was at work when she got a call from her . The called her and states that he was not feeling well. She got home and saw him on the couch and called EMS. Per EMS, he was found at home to be intoxicated and altered, then vomited on them. No other history could be obtained. OBJECTIVE: Somnolent and barely arousable Vital Signs Period Temp Pulse Resp BP Sys/Dorantes Pulse Ox Last 24 Hr 97.2 F-98.7 F 70-88 19-20 127-149/66-88 92-98 HEENT: No Jaundice, eye redness or discharge, PERRLA, EOMI. Normocephalic, atraumatic. External ears are normal and hearing is grossly intact. No nasal discharge. Neck: Supple, nontender. No palpable adenopathy or thyromegaly. No JVD Chest: Good effort. Clear to auscultation and percussion. Heart: Regular. No S3, rub or murmur Abdomen: Distended, soft, nontender and no HSM. No rebound or guarding. Normoactive bowel sounds. Ext: Peripheral pulses intact. No leg edema. Skin: Warm and dry. No petechiae, rash or ecchymosis. Neuro: Somnolent. Withdraws to noxious stimuli. Current Medications Generic Name Dose Route Start Last Admin Trade Name Freq PRN Reason Stop Dose Admin Amlodipine Besylate 5 mg 11/28/17 10:00 Norvasc - PO DAILY MIRANDA Atenolol 100 mg 11/28/17 10:00 Tenormin - PO DAILY MIRANDA Atorvastatin Calcium 10 mg 11/28/17 22:00 Lipitor - PO HS MIRANDA Chlordiazepoxide HCl 25 mg 11/28/17 04:57 Librium - PO Q6H PRN AGITATION Dutasteride 0.5 mg 11/28/17 10:00 Avodart - PO DAILY MIRANDA Folic Acid 1 mg 11/28/17 10:00 Folic Acid - PO DAILY [facility] Heparin Sodium (Porcine) 5,000 unit 11/28/17 06:00 Heparin - SQ TID [facility] Folic Acid 1 mg/ Thiamine HCl 1,000 mls @ 125 mls/hr 11/28/17 00:27 11/28/17 02:06 100 mg/ Multivitamins/Minerals IVPB 11/28/17 08:26 125 mls/hr 10 ml/ Sodium Chloride ONCE ONE Administration Sodium Chloride 1,000 mls @ 83 mls/hr 11/28/17 03:30 Normal Saline - IV ASDIR [facility] Levothyroxine Sodium 88 mcg 11/28/17 07:00 Synthroid - PO DAILY@0700 [facility] Tamsulosin HCl 0.4 mg 11/28/17 08:30 Flomax - PO DAILY@0830 [facility] Thiamine HCl 200 mg 11/28/17 10:00 Vitamin B1 Injection - IVPB DAILY [facility] Home Medications Medication Instructions Recorded Amlodipine Besylate 5 mg PO DAILY 11/28/17 Aspirin/Diphenhydramine Citrat 1 each PO DAILY 11/28/17 [Ibis Pm Caplet] Atenolol [Tenormin -] 100 mg PO DAILY 11/28/17 Cefuroxime Axetil [Ceftin -] 500 mg PO Q12H 11/28/17 Dutasteride 0.5 mg PO DAILY 11/28/17 Glipizide [Glipizide ER] 10 mg PO DAILY 11/28/17 Levothyroxine Sodium [Synthroid] 88 mcg PO DAILY 11/28/17 Oxycodone HCl/Acetaminophen 1 each PO DAILY 11/28/17 [Oxycodone-Acetaminophen 5-325] Psyllium Husk [Daily Fiber] 0.52 gm PO DAILY 11/28/17 Simvastatin [Zocor -] 20 mg PO DAILY 11/28/17 Sitagliptin Phosphate [Januvia] 50 mg PO DAILY 11/28/17 Tamsulosin HCl 0.4 mg PO DAILY 11/28/17 Abnormal Lab Results 11/28/17 11/28/17 11/28/17 00:03 00:03 00:03 WBC 10.2 H Eosinophils % 9.9 H VBG pH POC VBG pO2 BUN 24 H Creatinine 2.0 H Random Glucose 393 H* Lactic Acid 2.3 H* Calcium 8.4 L Lipase 481 H Urine Protein Urine Glucose (UA) Alcohol, Quantitative 317.4 H* 11/28/17 11/28/17 00:55 02:55 WBC Eosinophils % VBG pH 7.31 L POC VBG pO2 122.0 H BUN Creatinine Random Glucose Lactic Acid Calcium Lipase Urine Protein 3+ H Urine Glucose (UA) 3+ H Alcohol, Quantitative ASSESSMENT AND PLAN: 1. Alcohol intoxication - Patient placed on CIWA librium alcohol withdrawal protocol. He is getting banana bag, and we will continue with thiamine and folic acid. Implement fall precautions and refer to alcohol detox when stable. Check Mg and Phospahte levels. Lactic acidosis likely due to intoxication - will trend. 2. Abdominal distension and ?Pancreatitis - Will get sonogram of his abdomen. No complaint of abdominal pain but lipase is high. Trend lipase. 3. DM - For now, we will hold the home diabetes drugs and implement sliding scale insulin regimen. Provide comprehensive diabetes care with patient teaching and counseling about the importance of euglycemia, eye care and foot care. 4. KAYLEEN? and Proteinuria - He has risk factors for CKD but may also have KAYLEEN due to fluid loss from vomiting. Need comprhensive renal work up. Continue fluid support and consult nephrology. Avoid nephrotoxic agents such as NSAIDS, aminoglycosides, contrast dyes and certain Alternative medicine products. 5. DVT prophylaxis - Heparin 5000u sq tid. 6. Advance directives - Full code
[2017-11-28] MEDS: LEVOTHYROXINE NA 88 MCG TABLET (FP) PO SCH ×2 (06:25→09:05)
[2017-11-28] MEDS: HEPARIN NA (PORCINE) 5,000 UNITS/ML 1ML VIAL SQ SCH ×3 (06:26→21:26)
[2017-11-28 06:30] VITALS: BMI 29.8
--- NOTE | 2017-11-28 07:47 | HP ---
CHIEF COMPLAINT: AMS PCP: Mirlande HISTORY OF PRESENT ILLNESS: Pt is a 72 y/o M with PMH DM, HLD, HTN, hypothyroid, UTI (july), transaminitis per daughter, kidney disease per daughter who was brought to ED by EMS after called 911. Pt has been drinking heavily for the past 10 years but especially in the past 5 years since retiring. Reportedly the pt went out shopping yesterday and called the who noted that he sounded intoxicated and called EMS. Per , despite his drinking, pt has never had an episode like this one. She states he has often been drunk, but never unresponsive to this degree. In ED, Head CT was neg, US at bedside was unremarkable. Lipase was slightly elevated. ER course was notable for: (1)as above (2) (3) Recent Travel: PAST MEDICAL HISTORY: as above PAST SURGICAL HISTORY: Social History: Smoking: denies Alcohol: heavy Drugs: Family History: Allergies No Known Drug Allergies Allergy (Verified 11/27/17 23:07) HOME MEDICATIONS: Home Medications Medication Instructions Recorded Amlodipine Besylate 5 mg PO DAILY 11/28/17 Aspirin/Diphenhydramine Citrat 1 each PO DAILY 11/28/17 [Ibis Pm Caplet] Atenolol [Tenormin -] 100 mg PO DAILY 11/28/17 Cefuroxime Axetil [Ceftin -] 500 mg PO Q12H 11/28/17 Dutasteride 0.5 mg PO DAILY 11/28/17 Glipizide [Glipizide ER] 10 mg PO DAILY 11/28/17 Levothyroxine Sodium [Synthroid] 88 mcg PO DAILY 11/28/17 Oxycodone HCl/Acetaminophen 1 each PO DAILY 11/28/17 [Oxycodone-Acetaminophen 5-325] Psyllium Husk [Daily Fiber] 0.52 gm PO DAILY 11/28/17 Simvastatin [Zocor -] 20 mg PO DAILY 11/28/17 Sitagliptin Phosphate [Januvia] 50 mg PO DAILY 11/28/17 Tamsulosin HCl 0.4 mg PO DAILY 11/28/17 REVIEW OF SYSTEMS CONSTITUTIONAL: Absent: fever, chills, diaphoresis, generalized weakness, malaise, loss of appetite, weight change HEENT: Absent: rhinorrhea, nasal congestion, throat pain, throat swelling, difficulty swallowing, mouth swelling, ear pain, eye pain, visual changes CARDIOVASCULAR: Absent: chest pain, syncope, palpitations, irregular heart rate, lightheadedness , peripheral edema RESPIRATORY: Absent: cough, shortness of breath, dyspnea with exertion, orthopnea, wheezing, stridor, hemoptysis GASTROINTESTINAL: Absent: abdominal pain, abdominal distension, nausea, vomiting, diarrhea, constipation, melena, hematochezia GENITOURINARY: Absent: dysuria, frequency, urgency, hesitancy, hematuria, flank pain, genital pain MUSCULOSKELETAL: Absent: myalgia, arthralgia, joint swelling, back pain, neck pain SKIN: Absent: rash, itching, pallor HEMATOLOGIC/IMMUNOLOGIC: Absent: easy bleeding, easy bruising, lymphadenopathy, frequent infections ENDOCRINE: Absent: unexplained weight gain, unexplained weight loss, heat intolerance, cold intolerance NEUROLOGIC: mental status changes Absent: headache, focal weakness or paresthesias, dizziness, unsteady gait, seizure, , bladder or bowel incontinence PSYCHIATRIC: Absent: anxiety, depression, suicidal or homicidal ideation, hallucinations. PHYSICAL EXAMINATION Vital Signs - 24 hr 11/27/17 11/28/17 11/28/17 23:07 00:21 01:09 Temperature 98.7 F 98.2 F Pulse Rate 70 Pulse Rate [ 77 Right] Respiratory 20 19 Rate Blood Pressure 139/66 Blood Pressure 142/82 [Right Arm] O2 Sat by Pulse 92 L 98 98 Oximetry (%) 11/28/17 11/28/17 03:27 04:07 Temperature 97.9 F 97.2 F L Pulse Rate 88 Pulse Rate [ 86 Right] Respiratory 19 20 Rate Blood Pressure 127/87 Blood Pressure 149/88 [Right Arm] O2 Sat by Pulse 96 96 Oximetry (%) Pt uncommunicative at this time. PE limited. Gen: asleep in hospital bed. Groans to sternal rub. Unresponsive otherwise HEENT: NCAT, PERRL neck: no jvd Cardio: rrr, norm s1s2, no mrg Pulm: limited exam, no abnormal breath sounds noted Abd: distended, no shifting dullness noted, no fluid wave, no organomegally detected Ext: no edema 2+ pulses Laboratory Results - last 24 hr 11/28/17 11/28/17 11/28/17 00:03 00:03 00:03 WBC 10.2 H RBC 4.89 Hgb 13.2 Hct 40.9 MCV 83.6 MCH 27.0 MCHC 32.3 RDW 15.3 Plt Count 219 MPV 9.2 Absolute Neuts (auto) 6.3 Neutrophils % 61.8 Lymphocytes % 20.5 Monocytes % 7.0 Eosinophils % 9.9 H Basophils % 0.8 Nucleated RBC % 0 VBG pH POC VBG pCO2 POC VBG pO2 Mixed VBG HCO3 Sodium 138 Potassium 4.1 Chloride 104 Carbon Dioxide 24 Anion Gap 10 BUN 24 H Creatinine 2.0 H Creat Clearance w eGFR 32.92 POC Glucometer Random Glucose 393 H* Lactic Acid Calcium 8.4 L Total Bilirubin 0.2 AST 18 D ALT 30 Alkaline Phosphatase 99 Total Protein 8.0 Albumin 3.7 Lipase 481 H Urine Color Urine Appearance Urine pH Ur Specific [place] Urine Protein Urine Glucose (UA) Urine Ketones Urine Blood Urine Nitrite Urine Bilirubin Urine Urobilinogen Ur Leukocyte Esterase Urine WBC (Auto) Urine RBC (Auto) Ur Epithelial Cells Hyaline Casts Urine Mucus Salicylates < 1.70 Opiates Screen Methadone Screen Acetaminophen <2.0 Barbiturate Screen Phencyclidine Screen Ur Amphetamines Screen MDMA (Ecstasy) Screen Benzodiazepines Screen Cocaine Screen U Marijuana (THC) Screen Alcohol, Quantitative 317.4 H* Acetone, Qual Negative 11/28/17 11/28/17 11/28/17 00:03 00:55 00:55 WBC RBC Hgb Hct MCV MCH MCHC RDW Plt Count MPV Absolute Neuts (auto) Neutrophils % Lymphocytes % Monocytes % Eosinophils % Basophils % Nucleated RBC % VBG pH 7.31 L POC VBG pCO2 42.2 POC VBG pO2 122.0 H Mixed VBG HCO3 20.7 Sodium Potassium Chloride Carbon Dioxide Anion Gap BUN Creatinine Creat Clearance w eGFR POC Glucometer Random Glucose Lactic Acid 2.3 H* Calcium Total Bilirubin AST ALT Alkaline Phosphatase Total Protein Albumin Lipase Urine Color Urine Appearance Urine pH Ur Specific [place] Urine Protein Urine Glucose (UA) Urine Ketones Urine Blood Urine Nitrite Urine Bilirubin Urine Urobilinogen Ur Leukocyte Esterase Urine WBC (Auto) Urine RBC (Auto) Ur Epithelial Cells Hyaline Casts Urine Mucus Salicylates Opiates Screen Negative Methadone Screen Negative Acetaminophen Barbiturate Screen Negative Phencyclidine Screen Negative Ur Amphetamines Screen Negative MDMA (Ecstasy) Screen Negative Benzodiazepines Screen Negative Cocaine Screen Negative U Marijuana (THC) Screen Negative Alcohol, Quantitative Acetone, Qual 11/28/17 11/28/17 02:55 06:40 WBC RBC Hgb Hct MCV MCH MCHC RDW Plt Count MPV Absolute Neuts (auto) Neutrophils % Lymphocytes % Monocytes % Eosinophils % Basophils % Nucleated RBC % VBG pH POC VBG pCO2 POC VBG pO2 Mixed VBG HCO3 Sodium Potassium Chloride Carbon Dioxide Anion Gap BUN Creatinine Creat Clearance w eGFR POC Glucometer 331 Random Glucose Lactic Acid Calcium Total Bilirubin AST ALT Alkaline Phosphatase Total Protein Albumin Lipase Urine Color Ltyellow Urine Appearance Clear Urine pH 5.0 Ur Specific [place] 1.018 Urine Protein 3+ H Urine Glucose (UA) 3+ H Urine Ketones Negative Urine Blood Negative Urine Nitrite Negative Urine Bilirubin Negative Urine Urobilinogen Negative Ur Leukocyte Esterase Negative Urine WBC (Auto) <1 Urine RBC (Auto) <1 Ur Epithelial Cells Rare Hyaline Casts 4 Urine Mucus Rare Salicylates Opiates Screen Methadone Screen Acetaminophen Barbiturate Screen Phencyclidine Screen Ur Amphetamines Screen MDMA (Ecstasy) Screen Benzodiazepines Screen Cocaine Screen U Marijuana (THC) Screen Alcohol, Quantitative Acetone, Qual ASSESSMENT/PLAN: Pt is a 72 y/o M with PMH DM, HLD, HTN, hypothyroid, UTI (july), transaminitis per daughter, kidney disease per daughter who was brought to ED. Pt put on Obs for metabolic encephalopathy. 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 - New Patient This patient is new to me today: Yes Date on this admission: 11/28/17 - Critical Care Critical Care patient: No Hospitalist Screening - Colonoscopy Questionnaire Colonoscopy Questionnaire: Colonoscopy Questionnaire - Patient: 50 - 75 years old and never had a screening colonoscopy: Unknown History of colon or rectal polyps, or CA: Unknown History of IBD, Crohn's disease or UC: Unknown History of abdominal radiation therapy as a child: Unknown - Relative: 1 with colon or rectal CA, or polyps at age 60 or younger: Unknown Colon or rectal CA diagnosed at age 45 or younger: Unknown Multiple relatives with colon or rectal CA: Unknown - Outcome: Screening Result: Negative Screen
[2017-11-28] MEDS: TAMSULOSIN HCL 0.4 MG CAP.ER.24H (FP) PO SCH (08:58)
--- NOTE | 2017-11-28 09:23 | EKG ---
Test Reason : Blood Pressure : / mmHG Vent. Rate : 069 BPM Atrial Rate : 069 BPM P-R Int : 174 ms QRS Dur : 092 ms QT Int : 410 ms P-R-T Axes : 053 039 097 degrees QTc Int : 439 ms NORMAL SINUS RHYTHM NONSPECIFIC T WAVE ABNORMALITY ABNORMAL ECG WHEN COMPARED WITH ECG OF 02-FEB-2016 11:06, QT HAS LENGTHENED Confirmed by SHANT BHATTI MD ([id number]) on 11/28/2017 9:23:24 AM Referred By: Confirmed By:SHANT BHATTI MD
[2017-11-28] MEDS: ASPIRIN/DIPYRIDAMOLE 25 MG/200 MG CAPSULE (FP) PO SCH ×2 (09:56→21:27)
[2017-11-28] MEDS: DUTASTERIDE 0.5 MG CAP (FP) PO SCH (09:57)
[2017-11-28] MEDS: ATENOLOL 50 MG TABLET (FP) PO SCH (09:57)
[2017-11-28] MEDS: THIAMINE HCL 200 MG/2 ML VIAL IVPB SCH (09:57)
[2017-11-28] MEDS: amLODIPine BESYLATE 5 MG TABLET (FP) PO SCH (09:57)
[2017-11-28] MEDS: FOLIC ACID 1 MG TABLET (FP) PO SCH (09:57)
[2017-11-28 10:38] LABS: BASO % 0.9 % (0-2.0); EOS % 11.4 % (0-4.5); HEMATOCRIT 40.2 % (35.4-49); HEMOGLOBIN 13.3 GM/dL (11.7-16.9); LYMPH % 28.1 % (8-40); MCH 27.5 pg (25.7-33.7); MEAN CELL VOLUME 83.2 fl (80-96); MEAN PLT VOLUME 8.9 fl (7.5-11.1); MONO % 7.1 % (3.8-10.2); NEUT % 52.5 % (42.8-82.8); PLATELET COUNT 216 K/MM3 (134-434); RBC 4.83 M/mm3 (4.00-5.60); RDW 15.8 % (11.9-15.9); WHITE BLOOD COUNT 8.8 K/mm3 (4.0-10.0)
[2017-11-28 10:48] LABS: INR 0.91 (0.82-1.09); PROTHROMBIN TIME (PATIENT) 10.3 SEC (9.7-13.0)
[2017-11-28 11:11] LABS: ALBUMIN 3.7 g/dl (3.4-5.0); ANION GAP 9 (8-16); BLOOD UREA NITROGEN 25 mg/dL (7-18); CALCIUM 8.7 mg/dL (8.5-10.1); CHLORIDE 110 mmol/L (98-107); CO2 24 mmol/L (21-32); MAGNESIUM 2.4 mg/dL (1.8-2.4); POTASSIUM 4.4 mmol/L (3.5-5.1); SODIUM 143 mmol/L (136-145)
[2017-11-28 11:12] LABS: LIPASE 454 U/L (73-393)
[2017-11-28 11:13] LABS: GLUCOSE,RANDOM 355 mg/dL (74-106)
[2017-11-28 11:16] LABS: ALK PHOS 124 U/L (45-117); BILIRUBIN,DIRECT < 0.2 mg/dL (0.0-0.2); BILIRUBIN,TOTAL 0.2 mg/dL (0.2-1.0); CREATININE 1.7 mg/dL (0.7-1.3); PHOSPHOROUS 3.5 mg/dL (2.5-4.9); SGOT/AST 16 U/L (15-37); SGPT/ALT 27 U/L (12-78); TOT PROT 7.8 g/dl (6.4-8.2)
[2017-11-28] MEDS ORDERED: INSULIN (LEVEMIR) 100 UNITS/ML UNITS SQ ONE (11:48)
[2017-11-28] MEDS: INSULIN SLIDING SCALE (NOVOLOG) 1 VIAL SQ SCH ×3 (12:05→21:27)
[2017-11-28] MEDS ORDERED: SODIUM CHLORIDE 2,000 ML IV STA (15:06)
--- NOTE | 2017-11-28 15:21 | PN ---
Teaching Attending Note Name of Resident: Martha Burk ATTENDING PHYSICIAN STATEMENT I saw and evaluated the patient. I reviewed the resident's note and discussed the case with the resident. I agree with the resident's findings and plan as documented. SUBJECTIVE: Patient seen and examined. No chest pain, palpitations, nausea, vomiting, abdominal or diarrhea. No anxiety, jitteriness or tremors. OBJECTIVE: Vital Signs Period Temp Pulse Resp BP Sys/Dorantes Pulse Ox Last 24 Hr 97.2 F-98.7 F 70-88 19-20 127-154/66-88 92-98 Intake & Output 11/25/17 11/26/17 11/27/17 11/28/17 23:59 23:59 23:59 23:59 Intake Total 875 Balance 875 Weight 210 lb 190 lb 6.4 oz General: lying in bed in no acute distress, awake, appopriately convsersant Chest: CTAB, no rales or wheezing Abdomen:Soft, NT, ND,positive bowel sounds, no RUQ tenderness Extremities: no edema, no tremors. Home Medications Medication Instructions Recorded Amlodipine Besylate 5 mg PO DAILY 11/28/17 Aspirin/Diphenhydramine Citrat 1 each PO DAILY 11/28/17 [Ibis Pm Caplet] Atenolol [Tenormin -] 100 mg PO DAILY 11/28/17 Cefuroxime Axetil [Ceftin -] 500 mg PO Q12H 11/28/17 Dutasteride 0.5 mg PO DAILY 11/28/17 Glipizide [Glipizide ER] 10 mg PO DAILY 11/28/17 Levothyroxine Sodium [Synthroid] 88 mcg PO DAILY 11/28/17 Oxycodone HCl/Acetaminophen 1 each PO DAILY 11/28/17 [Oxycodone-Acetaminophen 5-325] Psyllium Husk [Daily Fiber] 0.52 gm PO DAILY 11/28/17 Simvastatin [Zocor -] 20 mg PO DAILY 11/28/17 Sitagliptin Phosphate [Januvia] 50 mg PO DAILY 11/28/17 Tamsulosin HCl 0.4 mg PO DAILY 11/28/17 Active Medications Amlodipine Besylate (Norvasc -) [address] [facility] Last Admin: 11/28/17 09:57 Dose: 5 mg Atenolol (Tenormin -) [address] [facility] Last Admin: 11/28/17 09:57 Dose: 100 mg Atorvastatin Calcium (Lipitor -) [address] [facility] Chlordiazepoxide HCl (Librium -) 25 mg PO Q6H PRN PRN Reason: AGITATION Dipyridamole/Aspirin (Aggrenox -) [address] [facility] Last Admin: 11/28/17 09:56 Dose: 1 combo Dutasteride (Avodart -) 0.[address] [facility] Last Admin: 11/28/17 09:57 Dose: 0.5 mg Folic Acid (Folic Acid -) [address] [facility] Last Admin: 11/28/17 09:57 Dose: 1 mg Heparin Sodium (Porcine) (Heparin -) 5,[address] [facility] Last Admin: 11/28/17 13:44 Dose: 5,000 unit Sodium Chloride (Normal Saline -) 2,000 mls @ 1,000 mls/hr IV ASDIR STA Stop: 11/28/17 17:05 Sodium Chloride (Normal Saline -) 1,000 mls @ 100 mls/hr IV ASDIR [facility] Insulin Aspart (Novolog Vial Sliding Scale -) [address] [facility]; Protocol Last Admin: 11/28/17 12:05 Dose: 8 unit Levothyroxine Sodium (Synthroid -) 88 mcg PO DAILY@0700 [facility] Last Admin: 11/28/17 09:05 Dose: 88 mcg Tamsulosin HCl (Flomax -) 0.4 mg PO DAILY@0830 [facility] Last Admin: 11/28/17 08:58 Dose: 0.4 mg Thiamine HCl (Vitamin B1 Injection -) [address] [facility] Last Admin: 11/28/17 09:57 Dose: 200 mg Laboratory Results - last 24 hr 11/28/17 11/28/17 11/28/17 00:03 00:03 00:03 WBC 10.2 H RBC 4.89 Hgb 13.2 Hct 40.9 MCV 83.6 MCH 27.0 MCHC 32.3 RDW 15.3 Plt Count 219 MPV 9.2 Absolute Neuts (auto) 6.3 Neutrophils % 61.8 Lymphocytes % 20.5 Monocytes % 7.0 Eosinophils % 9.9 H Basophils % 0.8 Nucleated RBC % 0 PT with INR INR VBG pH POC VBG pCO2 POC VBG pO2 Mixed VBG HCO3 Sodium 138 Potassium 4.1 Chloride 104 Carbon Dioxide 24 Anion Gap 10 BUN 24 H Creatinine 2.0 H Creat Clearance w eGFR 32.92 POC Glucometer Random Glucose 393 H* Hemoglobin A1c % Lactic Acid Calcium 8.4 L Phosphorus Magnesium Total Bilirubin 0.2 Direct Bilirubin AST 18 D ALT 30 Alkaline Phosphatase 99 Total Protein 8.0 Albumin 3.7 Lipase 481 H Urine Color Urine Appearance Urine pH Ur Specific [place] Urine Protein Urine Glucose (UA) Urine Ketones Urine Blood Urine Nitrite Urine Bilirubin Urine Urobilinogen Ur Leukocyte Esterase Urine WBC (Auto) Urine RBC (Auto) Ur Epithelial Cells Hyaline Casts Urine Mucus Salicylates < 1.70 Opiates Screen Methadone Screen Acetaminophen <2.0 Barbiturate Screen Phencyclidine Screen Ur Amphetamines Screen MDMA (Ecstasy) Screen Benzodiazepines Screen Cocaine Screen U Marijuana (THC) Screen Alcohol, Quantitative 317.4 H* Acetone, Qual Negative 11/28/17 11/28/17 11/28/17 00:03 00:55 00:55 WBC RBC Hgb Hct MCV MCH MCHC RDW Plt Count MPV Absolute Neuts (auto) Neutrophils % Lymphocytes % Monocytes % Eosinophils % Basophils % Nucleated RBC % PT with INR INR VBG pH 7.31 L POC VBG pCO2 42.2 POC VBG pO2 122.0 H Mixed VBG HCO3 20.7 Sodium Potassium Chloride Carbon Dioxide Anion Gap BUN Creatinine Creat Clearance w eGFR POC Glucometer Random Glucose Hemoglobin A1c % Lactic Acid 2.3 H* Calcium Phosphorus Magnesium Total Bilirubin Direct Bilirubin AST ALT Alkaline Phosphatase Total Protein Albumin Lipase Urine Color Urine Appearance Urine pH Ur Specific [place] Urine Protein Urine Glucose (UA) Urine Ketones Urine Blood Urine Nitrite Urine Bilirubin Urine Urobilinogen Ur Leukocyte Esterase Urine WBC (Auto) Urine RBC (Auto) Ur Epithelial Cells Hyaline Casts Urine Mucus Salicylates Opiates Screen Negative Methadone Screen Negative Acetaminophen Barbiturate Screen Negative Phencyclidine Screen Negative Ur Amphetamines Screen Negative MDMA (Ecstasy) Screen Negative Benzodiazepines Screen Negative Cocaine Screen Negative U Marijuana (THC) Screen Negative Alcohol, Quantitative Acetone, Qual 11/28/17 11/28/17 11/28/17 02:27 02:55 06:40 WBC RBC Hgb Hct MCV MCH MCHC RDW Plt Count MPV Absolute Neuts (auto) Neutrophils % Lymphocytes % Monocytes % Eosinophils % Basophils % Nucleated RBC % PT with INR INR VBG pH POC VBG pCO2 POC VBG pO2 Mixed VBG HCO3 Sodium Potassium Chloride Carbon Dioxide Anion Gap BUN Creatinine Creat Clearance w eGFR POC Glucometer > 400 331 Random Glucose Hemoglobin A1c % Lactic Acid Calcium Phosphorus Magnesium Total Bilirubin Direct Bilirubin AST ALT Alkaline Phosphatase Total Protein Albumin Lipase Urine Color Ltyellow Urine Appearance Clear Urine pH 5.0 Ur Specific [place] 1.018 Urine Protein 3+ H Urine Glucose (UA) 3+ H Urine Ketones Negative Urine Blood Negative Urine Nitrite Negative Urine Bilirubin Negative Urine Urobilinogen Negative Ur Leukocyte Esterase Negative Urine WBC (Auto) <1 Urine RBC (Auto) <1 Ur Epithelial Cells Rare Hyaline Casts 4 Urine Mucus Rare Salicylates Opiates Screen Methadone Screen Acetaminophen Barbiturate Screen Phencyclidine Screen Ur Amphetamines Screen MDMA (Ecstasy) Screen Benzodiazepines Screen Cocaine Screen U Marijuana (THC) Screen Alcohol, Quantitative Acetone, Qual 11/28/17 11/28/17 11/28/17 09:58 10:15 10:15 WBC 8.8 RBC 4.83 Hgb 13.3 Hct 40.2 MCV 83.2 MCH 27.5 MCHC 33.0 RDW 15.8 Plt Count 216 MPV 8.9 Absolute Neuts (auto) 4.6 Neutrophils % 52.5 Lymphocytes % 28.1 D Monocytes % 7.1 Eosinophils % 11.4 H Basophils % 0.9 Nucleated RBC % 0 PT with INR 10.30 INR 0.91 VBG pH POC VBG pCO2 POC VBG pO2 Mixed VBG HCO3 Sodium 143 Potassium 4.4 Chloride 110 H Carbon Dioxide 24 Anion Gap 9 BUN 25 H Creatinine 1.7 H Creat Clearance w eGFR 39.71 POC Glucometer Random Glucose 355 H* Hemoglobin A1c % Lactic Acid Calcium 8.7 Phosphorus 3.5 Magnesium 2.4 D Total Bilirubin 0.2 Direct Bilirubin < 0.2 D AST 16 ALT 27 Alkaline Phosphatase 124 H D Total Protein 7.8 Albumin 3.7 Lipase 454 H Urine Color Urine Appearance Urine pH Ur Specific [place] Urine Protein Urine Glucose (UA) Urine Ketones Urine Blood Urine Nitrite Urine Bilirubin Urine Urobilinogen Ur Leukocyte Esterase Urine WBC (Auto) Urine RBC (Auto) Ur Epithelial Cells Hyaline Casts Urine Mucus Salicylates Opiates Screen Methadone Screen Acetaminophen Barbiturate Screen Phencyclidine Screen Ur Amphetamines Screen MDMA (Ecstasy) Screen Benzodiazepines Screen Cocaine Screen U Marijuana (THC) Screen Alcohol, Quantitative Acetone, Qual 11/28/17 11/28/1711/28/18 10:15 10:15 10:15 WBC RBC Hgb Hct MCV MCH MCHC RDW Plt Count MPV Absolute Neuts (auto) Neutrophils % Lymphocytes % Monocytes % Eosinophils % Basophils % Nucleated RBC % PT with INR INR VBG pH POC VBG pCO2 POC VBG pO2 Mixed VBG HCO3 Sodium Potassium Chloride Carbon Dioxide Anion Gap BUN Creatinine Creat Clearance w eGFR POC Glucometer Random Glucose Hemoglobin A1c % 10.8 H D Lactic Acid Calcium Phosphorus Magnesium Total Bilirubin Cancelled Direct Bilirubin Cancelled AST Cancelled ALT Cancelled Alkaline Phosphatase Cancelled Total Protein Cancelled Albumin Cancelled Lipase Cancelled Urine Color Urine Appearance Urine pH Ur Specific [place] Urine Protein Urine Glucose (UA) Urine Ketones Urine Blood Urine Nitrite Urine Bilirubin Urine Urobilinogen Ur Leukocyte Esterase Urine WBC (Auto) Urine RBC (Auto) Ur Epithelial Cells Hyaline Casts Urine Mucus Salicylates Opiates Screen Methadone Screen Acetaminophen Barbiturate Screen Phencyclidine Screen Ur Amphetamines Screen MDMA (Ecstasy) Screen Benzodiazepines Screen Cocaine Screen U Marijuana (THC) Screen Alcohol, Quantitative Acetone, Qual 11/28/17 11/28/17 11:25 11:56 WBC RBC Hgb Hct MCV MCH MCHC RDW Plt Count MPV Absolute Neuts (auto) Neutrophils % Lymphocytes % Monocytes % Eosinophils % Basophils % Nucleated RBC % PT with INR INR VBG pH POC VBG pCO2 POC VBG pO2 Mixed VBG HCO3 Sodium Potassium Chloride Carbon Dioxide Anion Gap BUN Creatinine Creat Clearance w eGFR POC Glucometer 326 Random Glucose Hemoglobin A1c % Lactic Acid 2.5 H* Calcium Phosphorus Magnesium Total Bilirubin Direct Bilirubin AST ALT Alkaline Phosphatase Total Protein Albumin Lipase Urine Color Urine Appearance Urine pH Ur Specific [place] Urine Protein Urine Glucose (UA) Urine Ketones Urine Blood Urine Nitrite Urine Bilirubin Urine Urobilinogen Ur Leukocyte Esterase Urine WBC (Auto) Urine RBC (Auto) Ur Epithelial Cells Hyaline Casts Urine Mucus Salicylates Opiates Screen Methadone Screen Acetaminophen Barbiturate Screen Phencyclidine Screen Ur Amphetamines Screen MDMA (Ecstasy) Screen Benzodiazepines Screen Cocaine Screen U Marijuana (THC) Screen Alcohol, Quantitative Acetone, Qual ASSESSMENT AND PLAN: 72 yom with PMHx of DM, HLD, HTN, hypothyroid, UTI (july), transaminitis per daughter, CKD stage II-III (baseline cr around 1.3-1.5), CVA, alcohol abuse, brought in by with concerns for ETOH intoxication and unresponsiveness -Acute alcohol intoxication with unresponsiveness -Alcohol abuse/dependence -KAYLEEN, likely from hypovolumia/ETOH/hyperglycemia with osmotic diuresis -Lactic acidosis, from hypovolumia -h/o CVA -IDDM -HTN -HLD -Hypothyroidism Plan: Awake, no gross evidence of withdrawal, libirum prn, Detox consult, however, patient refuses to think has a 'problem'. Folate/thiamine. Lactate noted. Addition 2L IV bolus, increase IVF to 100 ml/hr. No abdominal symptoms. Advance to clears Repeat lipase/lFTs, advance to regular as tolerated. levemir 20 units now, confirm home dose. resume based on sugars and po intake. ISS, diabetic diet. Hold oral hypoglycemics. Continue amlodipine/atenolol. Renal function improved. Check renal/bladder US. IVF as above. Continue aggrenox. Continue levothyroxine. DVTPPX with heparin Dispo planning in 24-48 hours if continues to improve and no withdrawal concerns. Plan discussed with patient and at bedside in detail, all questions answered.
[2017-11-28 16:39] LABS: ALBUMIN 3.2 g/dl (3.4-5.0); ALK PHOS 98 U/L (45-117); BILIRUBIN,DIRECT < 0.2 mg/dL (0.0-0.2); BILIRUBIN,TOTAL 0.3 mg/dL (0.2-1.0); SGOT/AST 15 U/L (15-37); SGPT/ALT 27 U/L (12-78)
[2017-11-28 16:41] LABS: LIPASE 403 U/L (73-393)
--- NOTE | 2017-11-28 18:11 | CON.PSY ---
Psychiatry Consult Chief Complaint: 72 year old male with a history of Alcohol dependence and depression seen for psych eval. patient had been on Lexapro but stopped taking it. family reports Lexaoro was helpful. Patient still drinking. Symptoms: reports: Anhedonia - Previous Psychiatric Treatment Outpatient: None Inpatient: None - Previous Substance Abuse Treatment Outpatient: None Inpatient: None - Reason for Previous Treatment Reason for Previous Treatment: Major Depression, Alcohol Abuse - Current Medications Current Medications: Active Medications Amlodipine Besylate (Norvasc -) 5 mg PO DAILY [facility] Last Admin: 11/28/17 09:57 Dose: 5 mg Atenolol (Tenormin -) 100 mg PO DAILY [facility] Last Admin: 11/28/17 09:57 Dose: 100 mg Atorvastatin Calcium (Lipitor -) 10 mg PO HS [facility] Chlordiazepoxide HCl (Librium -) 25 mg PO Q6H PRN PRN Reason: AGITATION Dipyridamole/Aspirin (Aggrenox -) 1 combo PO BID [facility] Last Admin: 11/28/17 09:56 Dose: 1 combo Dutasteride (Avodart -) 0.5 mg PO DAILY [facility] Last Admin: 11/28/17 09:57 Dose: 0.5 mg Folic Acid (Folic Acid -) 1 mg PO DAILY [facility] Last Admin: 11/28/17 09:57 Dose: 1 mg Heparin Sodium (Porcine) (Heparin -) 5,000 unit SQ TID [facility] Last Admin: 11/28/17 13:44 Dose: 5,000 unit Sodium Chloride (Normal Saline -) 1,000 mls @ 100 mls/hr IV ASDIR [facility] Last Admin: 11/28/17 17:06 Dose: 100 mls/hr Insulin Aspart (Novolog Vial Sliding Scale -) 1 vial SQ ACHS [facility]; Protocol Last Admin: 11/28/17 17:06 Dose: 6 unit Levothyroxine Sodium (Synthroid -) 88 mcg PO DAILY@0700 [facility] Last Admin: 11/28/17 09:05 Dose: 88 mcg Tamsulosin HCl (Flomax -) 0.4 mg PO DAILY@0830 [facility] Last Admin: 11/28/17 08:58 Dose: 0.4 mg Thiamine HCl (Vitamin B1 Injection -) 200 mg IVPB DAILY [facility] Last Admin: 11/28/17 09:57 Dose: 200 mg - Allergies Allergies: Allergies Allergy/AdvReac Type Severity Reaction Status Date / Time No Known Drug Allergies Allergy Verified 11/27/17 23:07 - Current Living Status Usual Living Arrangement: With Spouse - Current Mental Status Evaluation Appearance: Disheveled Attitude: Guarded - Affect Affect: Constrictive Appropriateness: Appropriate to Content - Mood Mood: Depressed - Speech/Language Expressive: Coherent - Psychomotor Activity Psychomotor Activity: Slowed - Thought Process Thought Process: Intact - Thought Content Hallucinations: Absent Delusions: Absent - Self Perception Self Perception: No Impairment - Cognition Attention: Alert Orientation: Time Memory, Immediate Recall: Intact Memory, Short Term: 2/3 Memory, Remote with Promptin/3 - Concentration Serial Sevens Intact: No Simple Calculations Intact: Yes - Abstraction Proverb Interpretation: Intact Judgement: Minimally Impaired - Insight Insight: Intact - Impulse Control Impulse Control: Minimally Impaired - Suicidal Ideation Suicidal Ideation: No - Homicidal Ideation Homicidal Ideation: No Assessment/Plan Lexapro 5mg po od.
--- NOTE | 2017-11-28 19:21 | PN ---
Physical Exam: SUBJECTIVE: Patient seen and examined at bedside while his was present. Patient says he is feeling fine without any complaints. Denies any fevers, chills, chest pain, SOB, nausea, vomiting, diarrhea, constipation. OBJECTIVE: Vital Signs Period Temp Pulse Resp BP Sys/Dorantes Pulse Ox Last 24 Hr 97.2 F-98.7 F 70-88 19-20 127-154/66-88 92-98 GENERAL: The patient is awake, alert, and fully oriented, in no acute distress. LUNGS: Breath sounds equal, clear to auscultation bilaterally, no wheezes, no crackles HEART: Regular rate and rhythm, S1, S2 without murmur, rub or gallop. ABDOMEN: Soft, nontender to palpation, nondistended, normoactive bowel sounds EXTREMITIES: Non edematous NEUROLOGICAL: No Tremors Laboratory Results - last 24 hr 11/28/17 11/28/17 11/28/17 00:03 00:03 00:03 WBC 10.2 H RBC 4.89 Hgb 13.2 Hct 40.9 MCV 83.6 MCH 27.0 MCHC 32.3 RDW 15.3 Plt Count 219 MPV 9.2 Absolute Neuts (auto) 6.3 Neutrophils % 61.8 Lymphocytes % 20.5 Monocytes % 7.0 Eosinophils % 9.9 H Basophils % 0.8 Nucleated RBC % 0 PT with INR INR VBG pH POC VBG pCO2 POC VBG pO2 Mixed VBG HCO3 Sodium 138 Potassium 4.1 Chloride 104 Carbon Dioxide 24 Anion Gap 10 BUN 24 H Creatinine 2.0 H Creat Clearance w eGFR 32.92 POC Glucometer Random Glucose 393 H* Hemoglobin A1c % Lactic Acid Calcium 8.4 L Phosphorus Magnesium Total Bilirubin 0.2 Direct Bilirubin AST 18 D ALT 30 Alkaline Phosphatase 99 Total Protein 8.0 Albumin 3.7 Lipase 481 H Urine Color Urine Appearance Urine pH Ur Specific [place] Urine Protein Urine Glucose (UA) Urine Ketones Urine Blood Urine Nitrite Urine Bilirubin Urine Urobilinogen Ur Leukocyte Esterase Urine WBC (Auto) Urine RBC (Auto) Ur Epithelial Cells Hyaline Casts Urine Mucus Salicylates < 1.70 Opiates Screen Methadone Screen Acetaminophen <2.0 Barbiturate Screen Phencyclidine Screen Ur Amphetamines Screen MDMA (Ecstasy) Screen Benzodiazepines Screen Cocaine Screen U Marijuana (THC) Screen Alcohol, Quantitative 317.4 H* Acetone, Qual Negative 11/28/17 11/28/17 11/28/17 00:03 00:55 00:55 WBC RBC Hgb Hct MCV MCH MCHC RDW Plt Count MPV Absolute Neuts (auto) Neutrophils % Lymphocytes % Monocytes % Eosinophils % Basophils % Nucleated RBC % PT with INR INR VBG pH 7.31 L POC VBG pCO2 42.2 POC VBG pO2 122.0 H Mixed VBG HCO3 20.7 Sodium Potassium Chloride Carbon Dioxide Anion Gap BUN Creatinine Creat Clearance w eGFR POC Glucometer Random Glucose Hemoglobin A1c % Lactic Acid 2.3 H* Calcium Phosphorus Magnesium Total Bilirubin Direct Bilirubin AST ALT Alkaline Phosphatase Total Protein Albumin Lipase Urine Color Urine Appearance Urine pH Ur Specific [place] Urine Protein Urine Glucose (UA) Urine Ketones Urine Blood Urine Nitrite Urine Bilirubin Urine Urobilinogen Ur Leukocyte Esterase Urine WBC (Auto) Urine RBC (Auto) Ur Epithelial Cells Hyaline Casts Urine Mucus Salicylates Opiates Screen Negative Methadone Screen Negative Acetaminophen Barbiturate Screen Negative Phencyclidine Screen Negative Ur Amphetamines Screen Negative MDMA (Ecstasy) Screen Negative Benzodiazepines Screen Negative Cocaine Screen Negative U Marijuana (THC) Screen Negative Alcohol, Quantitative Acetone, Qual 11/28/17 11/28/17 11/28/17 02:27 02:55 06:40 WBC RBC Hgb Hct MCV MCH MCHC RDW Plt Count MPV Absolute Neuts (auto) Neutrophils % Lymphocytes % Monocytes % Eosinophils % Basophils % Nucleated RBC % PT with INR INR VBG pH POC VBG pCO2 POC VBG pO2 Mixed VBG HCO3 Sodium Potassium Chloride Carbon Dioxide Anion Gap BUN Creatinine Creat Clearance w eGFR POC Glucometer > 400 331 Random Glucose Hemoglobin A1c % Lactic Acid Calcium Phosphorus Magnesium Total Bilirubin Direct Bilirubin AST ALT Alkaline Phosphatase Total Protein Albumin Lipase Urine Color Ltyellow Urine Appearance Clear Urine pH 5.0 Ur Specific [place] 1.018 Urine Protein 3+ H Urine Glucose (UA) 3+ H Urine Ketones Negative Urine Blood Negative Urine Nitrite Negative Urine Bilirubin Negative Urine Urobilinogen Negative Ur Leukocyte Esterase Negative Urine WBC (Auto) <1 Urine RBC (Auto) <1 Ur Epithelial Cells Rare Hyaline Casts 4 Urine Mucus Rare Salicylates Opiates Screen Methadone Screen Acetaminophen Barbiturate Screen Phencyclidine Screen Ur Amphetamines Screen MDMA (Ecstasy) Screen Benzodiazepines Screen Cocaine Screen U Marijuana (THC) Screen Alcohol, Quantitative Acetone, Qual 11/28/17 11/28/17 11/28/17 09:58 10:15 10:15 WBC 8.8 RBC 4.83 Hgb 13.3 Hct 40.2 MCV 83.2 MCH 27.5 MCHC 33.0 RDW 15.8 Plt Count 216 MPV 8.9 Absolute Neuts (auto) 4.6 Neutrophils % 52.5 Lymphocytes % 28.1 D Monocytes % 7.1 Eosinophils % 11.4 H Basophils % 0.9 Nucleated RBC % 0 PT with INR 10.30 INR 0.91 VBG pH POC VBG pCO2 POC VBG pO2 Mixed VBG HCO3 Sodium 143 Potassium 4.4 Chloride 110 H Carbon Dioxide 24 Anion Gap 9 BUN 25 H Creatinine 1.7 H Creat Clearance w eGFR 39.71 POC Glucometer Random Glucose 355 H* Hemoglobin A1c % Lactic Acid Calcium 8.7 Phosphorus 3.5 Magnesium 2.4 D Total Bilirubin 0.2 Direct Bilirubin < 0.2 D AST 16 ALT 27 Alkaline Phosphatase 124 H D Total Protein 7.8 Albumin 3.7 Lipase 454 H Urine Color Urine Appearance Urine pH Ur Specific [place] Urine Protein Urine Glucose (UA) Urine Ketones Urine Blood Urine Nitrite Urine Bilirubin Urine Urobilinogen Ur Leukocyte Esterase Urine WBC (Auto) Urine RBC (Auto) Ur Epithelial Cells Hyaline Casts Urine Mucus Salicylates Opiates Screen Methadone Screen Acetaminophen Barbiturate Screen Phencyclidine Screen Ur Amphetamines Screen MDMA (Ecstasy) Screen Benzodiazepines Screen Cocaine Screen U Marijuana (THC) Screen Alcohol, Quantitative Acetone, Qual 11/28/17 11/28/17 11/28/17 10:15 10:15 10:15 WBC RBC Hgb Hct MCV MCH MCHC RDW Plt Count MPV Absolute Neuts (auto) Neutrophils % Lymphocytes % Monocytes % Eosinophils % Basophils % Nucleated RBC % PT with INR INR VBG pH POC VBG pCO2 POC VBG pO2 Mixed VBG HCO3 Sodium Potassium Chloride Carbon Dioxide Anion Gap BUN Creatinine Creat Clearance w eGFR POC Glucometer Random Glucose Hemoglobin A1c % 10.8 H D Lactic Acid Calcium Phosphorus Magnesium Total Bilirubin Cancelled Direct Bilirubin Cancelled AST Cancelled ALT Cancelled Alkaline Phosphatase Cancelled Total Protein Cancelled Albumin Cancelled Lipase Cancelled Urine Color Urine Appearance Urine pH Ur Specific [place] Urine Protein Urine Glucose (UA) Urine Ketones Urine Blood Urine Nitrite Urine Bilirubin Urine Urobilinogen Ur Leukocyte Esterase Urine WBC (Auto) Urine RBC (Auto) Ur Epithelial Cells Hyaline Casts Urine Mucus Salicylates Opiates Screen Methadone Screen Acetaminophen Barbiturate Screen Phencyclidine Screen Ur Amphetamines Screen MDMA (Ecstasy) Screen Benzodiazepines Screen Cocaine Screen U Marijuana (THC) Screen Alcohol, Quantitative Acetone, Qual 11/28/17 11/28/17 11/28/17 11:25 11:56 15:29 WBC RBC Hgb Hct MCV MCH MCHC RDW Plt Count MPV Absolute Neuts (auto) Neutrophils % Lymphocytes % Monocytes % Eosinophils % Basophils % Nucleated RBC % PT with INR INR VBG pH POC VBG pCO2 POC VBG pO2 Mixed VBG HCO3 Sodium Potassium Chloride Carbon Dioxide Anion Gap BUN Creatinine Creat Clearance w eGFR POC Glucometer 326 337 Random Glucose Hemoglobin A1c % Lactic Acid 2.5 H* Calcium Phosphorus Magnesium Total Bilirubin Direct Bilirubin AST ALT Alkaline Phosphatase Total Protein Albumin Lipase Urine Color Urine Appearance Urine pH Ur Specific [place] Urine Protein Urine Glucose (UA) Urine Ketones Urine Blood Urine Nitrite Urine Bilirubin Urine Urobilinogen Ur Leukocyte Esterase Urine WBC (Auto) Urine RBC (Auto) Ur Epithelial Cells Hyaline Casts Urine Mucus Salicylates Opiates Screen Methadone Screen Acetaminophen Barbiturate Screen Phencyclidine Screen Ur Amphetamines Screen MDMA (Ecstasy) Screen Benzodiazepines Screen Cocaine Screen U Marijuana (THC) Screen Alcohol, Quantitative Acetone, Qual 11/28/17 11/28/17 16:10 17:03 WBC RBC Hgb Hct MCV MCH MCHC RDW Plt Count MPV Absolute Neuts (auto) Neutrophils % Lymphocytes % Monocytes % Eosinophils % Basophils % Nucleated RBC % PT with INR INR VBG pH POC VBG pCO2 POC VBG pO2 Mixed VBG HCO3 Sodium Potassium Chloride Carbon Dioxide Anion Gap BUN Creatinine Creat Clearance w eGFR POC Glucometer 297 Random Glucose Hemoglobin A1c % Lactic Acid Calcium Phosphorus Magnesium Total Bilirubin 0.3 Direct Bilirubin < 0.2 AST 15 ALT 27 Alkaline Phosphatase 98 D Total Protein 7.0 Albumin 3.2 L Lipase 403 H Urine Color Urine Appearance Urine pH Ur Specific [place] Urine Protein Urine Glucose (UA) Urine Ketones Urine Blood Urine Nitrite Urine Bilirubin Urine Urobilinogen Ur Leukocyte Esterase Urine WBC (Auto) Urine RBC (Auto) Ur Epithelial Cells Hyaline Casts Urine Mucus Salicylates Opiates Screen Methadone Screen Acetaminophen Barbiturate Screen Phencyclidine Screen Ur Amphetamines Screen MDMA (Ecstasy) Screen Benzodiazepines Screen Cocaine Screen U Marijuana (THC) Screen Alcohol, Quantitative Acetone, Qual Active Medications Amlodipine Besylate (Norvasc -) 5 mg PO DAILY [facility] Last Admin: 11/28/17 09:57 Dose: 5 mg Atenolol (Tenormin -) 100 mg PO DAILY [facility] Last Admin: 11/28/17 09:57 Dose: 100 mg Atorvastatin Calcium (Lipitor -) 10 mg PO HS [facility] Last Admin: 11/28/17 21:27 Dose: 10 mg Chlordiazepoxide HCl (Librium -) 25 mg PO Q6H PRN PRN Reason: AGITATION Dipyridamole/Aspirin (Aggrenox -) 1 combo PO BID [facility] Last Admin: 11/28/17 21:27 Dose: 1 combo Dutasteride (Avodart -) 0.5 mg PO DAILY [facility] Last Admin: 11/28/17 09:57 Dose: 0.5 mg Escitalopram Oxalate (Lexapro -) 5 mg PO DAILY [facility] Folic Acid (Folic Acid -) 1 mg PO DAILY [facility] Last Admin: 11/28/17 09:57 Dose: 1 mg Heparin Sodium (Porcine) (Heparin -) 5,000 unit SQ TID [facility] Last Admin: 11/28/17 21:26 Dose: 5,000 unit Sodium Chloride (Normal Saline -) 1,000 mls @ 100 mls/hr IV ASDIR [facility] Last Admin: 11/28/17 17:06 Dose: 100 mls/hr Insulin Aspart (Novolog Vial Sliding Scale -) 1 vial SQ ACHS [facility]; Protocol Last Admin: 11/28/17 21:27 Dose: 2 unit Levothyroxine Sodium (Synthroid -) 88 mcg PO DAILY@0700 [facility] Last Admin: 11/28/17 09:05 Dose: 88 mcg Tamsulosin HCl (Flomax -) 0.4 mg PO DAILY@0830 [facility] Last Admin: 11/28/17 08:58 Dose: 0.4 mg Thiamine HCl (Vitamin B1 Injection -) 200 mg IVPB DAILY [facility] Last Admin: 11/28/17 09:57 Dose: 200 mg ASSESSMENT/PLAN: 72 y/o M with PMHx of DM, HLD, HTN, hypothyroidism, UTI, Transaminitis, kidney disease, Hx of CVA/Stroke was brought to ED for unresponsiveness due to Alcohol abuse. 1. Alcohol Abuse/Withdrawal - Urine tox screen EtOH: 317.4 - Started on Chlordiazepoxide HCl (Librium) 25 mg PO Q6H PRN - Started on Thiamine HCl (Vitamin B1 Injection) 200 mg IVPB DAILY [facility] - Started on Folic Acid 1 mg PO DAILY [facility] - Detox consult 2. 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 Lactic acidosis likely due to hypovolemia - 2.3 in ED, trended up to 2.5 - Continue Normal Saline 1,000 mls @ 100 mls/hr IV ASDIR [facility] - Added 2L IV Bolus - Continue to monitor 5. Hx of CVA - Continue Dipyridamole/Aspirin (Aggrenox) PO BID [facility] 6. IDDM - BGM ACHS - Continue Home does levemir, 30 units AM, 60 Units PM - Continue Insulin Aspart 1 vial SQ ACHS [facility] - Diabetic diet 7. HTN, Controlled - Continue Amlodipine Besylate 5 mg PO DAILY [facility] - Continue Atenolol 100 mg PO DAILY [facility] 8. HLD - Continue Atorvastatin Calcium 10 mg PO HS [facility] 9. Hypothyroidism - Continue Levothyroxine Sodium 88 mcg PO DAILY@0700 [facility] 10. FEN - Normal Saline - lytes wnl - Clears, Advance to diabetic diet as tolerated 11. PPx -Hep SubQ Visit type - Emergency Visit Emergency Visit: No - New Patient This patient is new to me today: Yes Date on this admission: 11/28/17 - Critical Care Critical Care patient: No
--- NOTE | 2017-11-28 19:37 | PN ---
[facility] Progress Note (SOAP) Subjective: Addiction service called b/c alcohol use. 72 yo male with HTn, DM, High cholesterol has a long h/o alcohol use but increased use recently after fpc from work. Pt states he "does not drink much". The patient is alone at home in the evenings and the family does not know the extent of alcohol use. According to the family this is the first time he is hospitalized for alcohol related issues. Pt denies other drug use. Pt has a relatively poor diet. HgbA1c> 10 Objective: 11/29/17 21:45 VS shows increased BP pt is alert and oriented and is able to provide history pt is without tremors, no nause/vomiting, hallucinations Vital Signs - 24 hr 11/28/17 11/29/17 11/29/17 22:00 06:36 09:00 Temperature 99.1 F 97.8 F Pulse Rate 78 70 Respiratory 20 20 20 Rate Blood Pressure 150/65 180/77 O2 Sat by Pulse 97 Oximetry (%) 11/29/17 11/29/17 09:39 15:25 Temperature 98.3 F 98.6 F Pulse Rate 74 76 Respiratory 20 22 Rate Blood Pressure 170/71 167/70 O2 Sat by Pulse Oximetry (%) CBC, BMP 11/29/17 06:35 11/29/17 06:35 11/29/17 22:02 Assessment: 11/29/17 21:46 There is no evidence for alcohol withdrawal at this time. Pt states his alcohol use is limited. There is no indication for admission to detox/rehab- pt is not in withdrawal and no evidence of alcohol use disorder. d/w family that pt can go to [facility] if the need arises in the future. d/w pt and family at length about controlling alcohol use through better diet and exercise and lifestyle management. 11/29/17 22:13 Plan: At this time pt is not a candidate for [facility] detox admission. Thanks for the consult. Please call us back if we can be of further assistance
[2017-11-28] MEDS ORDERED: ATORVASTATIN CA 10 MG TABLET (FP) PO SCH (22:00)
[2017-11-29] MEDS ORDERED: chlordiazePOXIDE HCL 25 MG CAPSULE PO SCH ×2 (05:00→11:00)
[2017-11-29] MEDS: LEVOTHYROXINE NA 88 MCG TABLET (FP) PO SCH (06:29)
[2017-11-29] MEDS: INSULIN SLIDING SCALE (NOVOLOG) 1 VIAL SQ SCH ×3 (06:29→16:41)
[2017-11-29] MEDS: HEPARIN NA (PORCINE) 5,000 UNITS/ML 1ML VIAL SQ SCH ×2 (06:30→14:14)
[2017-11-29 07:40] LABS: BASO % 1.1 % (0-2.0); EOS % 13.3 % (0-4.5); HEMATOCRIT 37.4 % (35.4-49); HEMOGLOBIN 12.2 GM/dL (11.7-16.9); LYMPH % 25.9 % (8-40); MCH 27.2 pg (25.7-33.7); MCHC 32.7 g/dl (32.0-35.9); MEAN CELL VOLUME 83.2 fl (80-96); MEAN PLT VOLUME 9.2 fl (7.5-11.1); MONO % 8.1 % (3.8-10.2); NEUT % 51.6 % (42.8-82.8); PLATELET COUNT 190 K/MM3 (134-434); WHITE BLOOD COUNT 9.4 K/mm3 (4.0-10.0)
[2017-11-29 08:13] LABS: ALBUMIN 3.2 g/dl (3.4-5.0); ALK PHOS 91 U/L (45-117); ANION GAP 8 (8-16); BILIRUBIN,TOTAL 0.5 mg/dL (0.2-1.0); BLOOD UREA NITROGEN 20 mg/dL (7-18); CALCIUM 8.3 mg/dL (8.5-10.1); CHLORIDE 110 mmol/L (98-107); CO2 24 mmol/L (21-32); CREATININE 1.3 mg/dL (0.7-1.3); GLUCOSE,RANDOM 213 mg/dL (74-106); MAGNESIUM 1.9 mg/dL (1.8-2.4); PHOSPHOROUS 2.4 mg/dL (2.5-4.9); POTASSIUM 4.1 mmol/L (3.5-5.1); SGOT/AST 18 U/L (15-37); SGPT/ALT 25 U/L (12-78); SODIUM 142 mmol/L (136-145); TOT PROT 7.1 g/dl (6.4-8.2)
[2017-11-29 08:54] LABS: CHOLESTEROL 206 mg/dL (50-200); HDL CHOLESTEROL 44 mg/dL (40-60); TRIGLYCERIDES 243 mg/dL (35-160)
[2017-11-29] MEDS: TAMSULOSIN HCL 0.4 MG CAP.ER.24H (FP) PO SCH (09:23)
[2017-11-29] MEDS: ASPIRIN/DIPYRIDAMOLE 25 MG/200 MG CAPSULE (FP) PO SCH (09:23)
[2017-11-29] MEDS: DUTASTERIDE 0.5 MG CAP (FP) PO SCH (09:23)
[2017-11-29] MEDS: FOLIC ACID 1 MG TABLET (FP) PO SCH (09:24)
[2017-11-29] MEDS: THIAMINE HCL 200 MG/2 ML VIAL IVPB SCH (09:24)
[2017-11-29] MEDS: ATENOLOL 50 MG TABLET (FP) PO SCH (09:24)
[2017-11-29] MEDS: amLODIPine BESYLATE 5 MG TABLET (FP) PO SCH (09:24)
[2017-11-29] MEDS ORDERED: ESCITALOPRAM OXALATE 10 MG TABLET (FP) PO SCH (10:00)
[2017-11-29] MEDS ORDERED: INSULIN (LEVEMIR) 100 UNITS/ML UNITS SQ SCH (10:15)
[2017-11-29] MEDS ORDERED: SODIUM PHOSPHATE - 15 MM in DEXTROSE 5%-WATER - 250 ML IVPB ONE (12:00)
--- NOTE | 2017-11-29 12:47 | PN ---
Teaching Attending Note Name of Resident: Martha Burk ATTENDING PHYSICIAN STATEMENT I saw and evaluated the patient. I reviewed the resident's note and discussed the case with the resident. I agree with the resident's findings and plan as documented with exceptions below. SUBJECTIVE: Patient seen and examined. no complaints, eating well. OBJECTIVE: Vital Signs Period Temp Pulse Resp BP Sys/Dorantes Pulse Ox Last 24 Hr 97.8 F-99.1 F 70-78 20-20 144-180/65-77 90-97 Intake & Output 11/26/17 11/27/17 11/28/17 11/29/17 23:59 23:59 23:59 23:59 Intake Total 1675 700 Balance 1675 700 Weight 210 lb 190 lb 6.4 oz General: sitting in bed in no acute distress Chest: CTAB, no rales or wheezing Abdomen:Soft, NT, obese Extremities: no edema or tremors Laboratory Results - last 24 hr 11/28/17 11/28/17 11/28/17 10:15 11:25 15:29 WBC RBC Hgb Hct MCV MCH MCHC RDW Plt Count MPV Absolute Neuts (auto) Neutrophils % Lymphocytes % Monocytes % Eosinophils % Basophils % Nucleated RBC % Sodium 143 Potassium 4.4 Chloride 110 H Carbon Dioxide 24 Anion Gap 9 BUN 25 H Creatinine 1.7 H Creat Clearance w eGFR 39.71 POC Glucometer 337 Random Glucose 355 H* Hemoglobin A1c % Lactic Acid 2.5 H* Calcium 8.7 Phosphorus 3.5 Magnesium 2.4 D Total Bilirubin 0.2 Direct Bilirubin < 0.2 D AST 16 ALT 27 Alkaline Phosphatase 124 H D Total Protein 7.8 Albumin 3.7 Triglycerides 243 H D Cholesterol 206 H Total LDL Cholesterol 129 H HDL Cholesterol 44 Lipase 454 H 11/28/17 11/28/17 11/28/17 16:10 17:03 20:30 WBC RBC Hgb Hct MCV MCH MCHC RDW Plt Count MPV Absolute Neuts (auto) Neutrophils % Lymphocytes % Monocytes % Eosinophils % Basophils % Nucleated RBC % Sodium Potassium Chloride Carbon Dioxide Anion Gap BUN Creatinine Creat Clearance w eGFR POC Glucometer 297 Random Glucose Hemoglobin A1c % Lactic Acid 1.4 Calcium Phosphorus Magnesium Total Bilirubin 0.3 Direct Bilirubin < 0.2 AST 15 ALT 27 Alkaline Phosphatase 98 D Total Protein 7.0 Albumin 3.2 L Triglycerides Cholesterol Total LDL Cholesterol HDL Cholesterol Lipase 403 H 0711/29/17 11/29/17 21:24 06:26 06:35 WBC 9.4 RBC 4.50 Hgb 12.2 Hct 37.4 MCV 83.2 MCH 27.2 MCHC 32.7 RDW 16.0 H Plt Count 190 MPV 9.2 Absolute Neuts (auto) 4.8 Neutrophils % 51.6 Lymphocytes % 25.9 Monocytes % 8.1 Eosinophils % 13.3 H Basophils % 1.1 Nucleated RBC % 0 Sodium Potassium Chloride Carbon Dioxide Anion Gap BUN Creatinine Creat Clearance w eGFR POC Glucometer 180 201 Random Glucose Hemoglobin A1c % Lactic Acid Calcium Phosphorus Magnesium Total Bilirubin Direct Bilirubin AST ALT Alkaline Phosphatase Total Protein Albumin Triglycerides Cholesterol Total LDL Cholesterol HDL Cholesterol Lipase 11/29/17 11/29/17 11/29/17 06:35 06:35 11:21 WBC RBC Hgb Hct MCV MCH MCHC RDW Plt Count MPV Absolute Neuts (auto) Neutrophils % Lymphocytes % Monocytes % Eosinophils % Basophils % Nucleated RBC % Sodium 142 Potassium 4.1 Chloride 110 H Carbon Dioxide 24 Anion Gap 8 BUN 20 H Creatinine 1.3 Creat Clearance w eGFR 54.11 POC Glucometer 280 Random Glucose 213 H D Hemoglobin A1c % 10.9 H D Lactic Acid Calcium 8.3 L Phosphorus 2.4 L D Magnesium 1.9 D Total Bilirubin 0.5 Direct Bilirubin AST 18 ALT 25 Alkaline Phosphatase 91 Total Protein 7.1 Albumin 3.2 L Triglycerides Cholesterol Total LDL Cholesterol HDL Cholesterol Lipase ASSESSMENT AND PLAN: 72 yom with PMHx of DM, HLD, HTN, hypothyroid, UTI (july), transaminitis per daughter, CKD stage II-III (baseline cr around 1.3-1.5), CVA, alcohol abuse, brought in by with concerns for ETOH intoxication and unresponsiveness -Acute alcohol intoxication with unresponsiveness -Alcohol abuse/dependence -KAYLEEN, likely from hypovolumia/ETOH/hyperglycemia with osmotic diuresis -Lactic acidosis, from hypovolumia -h/o CVA -IDDM -HTN -HLD -Hypothyroidism Plan: Awake and appropriate resolved. Renal function improved. Lactic acidosis resolved. Taking pO well. No s/s concerning for withdrawal. Resume home meds. Patient counseled in detail about ETOH cessation. At this point, does not feel has a problem or need for detox, states drinks occasionally. Also discussed A1c findings and need for better control of his diabetes and compliance with his medications, diet and home blood glucose monitoring and need for close follow up. Discussion witnessed by RN. will d/c home today with outpatient follow up. Instructions discussed in detail with patient, all questions answered and patient verbalized understanding.
--- NOTE | 2017-11-29 14:08 | DS ---
Physical Exam: SUBJECTIVE: Patient seen and examined at bedside while his was present. Patient says he is feeling fine without any over night complaints. Patient denies having any signs and symptoms of withdrawal including nausea, vomiting, tremors. Denies any fevers, chills, chest pain, SOB, diarrhea, constipation. OBJECTIVE: Vital Signs Period Temp Pulse Resp BP Sys/Dorantes Pulse Ox Last 24 Hr 97.8 F-99.1 F 70-78 20-20 145-180/65-77 90-97 PHYSICAL EXAM GENERAL: The patient is awake, alert, and fully oriented, in no acute distress. LUNGS: Breath sounds equal, clear to auscultation bilaterally, no wheezes, no crackles HEART: Regular rate and rhythm, S1, S2 without murmur, rub or gallop. ABDOMEN: Soft, nontender to palpation, nondistended, normoactive bowel sounds NEUROLOGICAL: No Tremors LABS Laboratory Results - last 24 hr 11/28/17 11/28/17 11/28/17 10:15 15:29 16:10 WBC RBC Hgb Hct MCV MCH MCHC RDW Plt Count MPV Absolute Neuts (auto) Neutrophils % Lymphocytes % Monocytes % Eosinophils % Basophils % Nucleated RBC % Sodium 143 Potassium 4.4 Chloride 110 H Carbon Dioxide 24 Anion Gap 9 BUN 25 H Creatinine 1.7 H Creat Clearance w eGFR 39.71 POC Glucometer 337 Random Glucose 355 H* Hemoglobin A1c % Lactic Acid Calcium 8.7 Phosphorus 3.5 Magnesium 2.4 D Total Bilirubin 0.2 0.3 Direct Bilirubin < 0.2 D < 0.2 AST 16 15 ALT 27 27 Alkaline Phosphatase 124 H D 98 D Total Protein 7.8 7.0 Albumin 3.7 3.2 L Triglycerides 243 H D Cholesterol 206 H Total LDL Cholesterol 129 H HDL Cholesterol 44 Lipase 454 H 403 H 11/28/17 11/28/17 11/28/17 17:03 20:30 21:24 WBC RBC Hgb Hct MCV MCH MCHC RDW Plt Count MPV Absolute Neuts (auto) Neutrophils % Lymphocytes % Monocytes % Eosinophils % Basophils % Nucleated RBC % Sodium Potassium Chloride Carbon Dioxide Anion Gap BUN Creatinine Creat Clearance w eGFR POC Glucometer 297 180 Random Glucose Hemoglobin A1c % Lactic Acid 1.4 Calcium Phosphorus Magnesium Total Bilirubin Direct Bilirubin AST ALT Alkaline Phosphatase Total Protein Albumin Triglycerides Cholesterol Total LDL Cholesterol HDL Cholesterol Lipase 11/29/17 11/29/1718 06:26 06:35 06:35 WBC 9.4 RBC 4.50 Hgb 12.2 Hct 37.4 MCV 83.2 MCH 27.2 MCHC 32.7 RDW 16.0 H Plt Count 190 MPV 9.2 Absolute Neuts (auto) 4.8 Neutrophils % 51.6 Lymphocytes % 25.9 Monocytes % 8.1 Eosinophils % 13.3 H Basophils % 1.1 Nucleated RBC % 0 Sodium 142 Potassium 4.1 Chloride 110 H Carbon Dioxide 24 Anion Gap 8 BUN 20 H Creatinine 1.3 Creat Clearance w eGFR 54.11 POC Glucometer 201 Random Glucose 213 H D Hemoglobin A1c % Lactic Acid Calcium 8.3 L Phosphorus 2.4 L D Magnesium 1.9 D Total Bilirubin 0.5 Direct Bilirubin AST 18 ALT 25 Alkaline Phosphatase 91 Total Protein 7.1 Albumin 3.2 L Triglycerides Cholesterol Total LDL Cholesterol HDL Cholesterol Lipase 11/29/17 11/29/17 06:35 11:21 WBC RBC Hgb Hct MCV MCH MCHC RDW Plt Count MPV Absolute Neuts (auto) Neutrophils % Lymphocytes % Monocytes % Eosinophils % Basophils % Nucleated RBC % Sodium Potassium Chloride Carbon Dioxide Anion Gap BUN Creatinine Creat Clearance w eGFR POC Glucometer 280 Random Glucose Hemoglobin A1c % 10.9 H D Lactic Acid Calcium Phosphorus Magnesium Total Bilirubin Direct Bilirubin AST ALT Alkaline Phosphatase Total Protein Albumin Triglycerides Cholesterol Total LDL Cholesterol HDL Cholesterol Lipase HOSPITAL COURSE: Date of Admission:11/28/17 Date of Discharge: 11/29/17 PreHospital course as per Dr. Samy Gonzalez PGY-2 Pt is a 72 y/o M with PMH DM, HLD, HTN, hypothyroid, UTI (july), transaminitis per daughter, kidney disease per daughter who was brought to ED by EMS after called 911. Pt has been drinking heavily for the past 10 years but especially in the past 5 years since retiring. Reportedly the pt went out shopping yesterday and called the who noted that he sounded intoxicated and called EMS. Per , despite his drinking, pt has never had an episode like this one. She states he has often been drunk, but never unresponsive to this degree. In ED, Head CT was neg, US at bedside was unremarkable. Lipase was slightly elevated. Hospital course Patient was admitted on 11/28 for Alcohol abuse/withdrawal. His urine tox screen on admission showed a blood EtOH level of 317.4. Patient received IV Fluids, Folate, and Thiamine. Patient had a borderline lipase level with no abdominal sx 's and a negative abdominal ultrasound. His KAYLEEN and lactic acidosis resolved. Patient had a renal and bladder ultrasound that was normal except for an enlarged prostate. Patient was also counseled on his elevated A1c level and the need for better control of his diabetes. Patient was counseled in the presence of his family about the importance of alcohol cessation and rehab/detox options available. Patient does not feel he has a problem at this time. Patient was also seen by psychiatry and restarted on Lexapro. Minutes to complete discharge: 40 Discharge Summary Reason For Visit: AMS ALCOHOLISM Current Active Problems Acute alcohol intoxication (Acute) Acute kidney injury (Acute) Altered mental status (Acute) Hyperglycemia (Acute) Alcoholic (Chronic) Condition: Good - Instructions Diet, Activity, Other Instructions: Strongly advised alcohol cessation You can discuss with your primary doctor about referral to a detox center Continue all your medications as before. You are resumed on your lexapro by psychiatrist. Please continue. Your blood work indicates that your diabetes is not well controlled (your A1c is 10.9) Recommend blood sugar checks and before bedtime till your next doctor visit, maintain a diary. Notify your doctor if < 75 or persistently > 200 or any read > [address], operate heavy machinery till your next doctor visit. If new pain, changes in mental status, ongoing drinking, nausea, vomiting, belly pain, fevers, tremors or new concerns, please call 911 or come to ED. Following blood work with your doctor: BMP (Basic metabolic panel) Phosphorous levels. Your kidney numbers were abnormal and improved after receiving fluids. Please ensure you drink adequate fluids and maintain a regular diet while on your medications. Your prostate was noted enlarged and will need outpatient follow up with urologist. Referrals: Timo West MD [Primary Care Provider] - Zach Guerrier MD [Staff Physician] - Disposition: HOME - Home Medications Comprehensive Discharge Medication List: Ambulatory Orders Amlodipine Besylate 5 mg PO DAILY 11/28/17 Aspirin/Diphenhydramine Citrat [Ibis Pm Caplet] 1 each PO DAILY 11/28/17 Atenolol [Tenormin -] 100 mg PO DAILY 11/28/17 Dutasteride 0.5 mg PO DAILY 11/28/17 Glipizide [Glipizide ER] 10 mg PO DAILY 11/28/17 Insulin (Levemir) [Levemir Vial] 30 unit SQ AM 11/28/17 Insulin (Levemir) [Levemir Vial] 60 unit SQ HS 11/28/17 Levothyroxine Sodium [Synthroid] 88 mcg PO DAILY 11/28/17 Psyllium Husk [Daily Fiber] 0.52 gm PO DAILY 11/28/17 Simvastatin [Zocor -] 20 mg PO DAILY 11/28/17 Sitagliptin Phosphate [Januvia] 50 mg PO DAILY 11/28/17 Tamsulosin HCl 0.4 mg PO DAILY 11/28/17 Escitalopram Oxalate [Lexapro -] 5 mg PO DAILY #30 tablet 11/29/17 Multivitamin [Daily Multiple Vitamin] 1 each PO DAILY #30 tablet 11/29/17 This patient is new to me today: No Emergency Visit: No Critical Care patient: No - Discharge Referral Referred to [facility] No
[2017-11-29 15:29] VITALS: BP 167/70; PULSE 76; TEMP 98.6
[2017-11-30] MEDS ORDERED: chlordiazePOXIDE 5 MG CAPSULE PO SCH ×2 (05:00→11:00)
== END 2017-11-29 17:08 | disposition home or self-care (01) | DRG 896 ==
LOC: JER 22:57 → JERBED 11-28 02:20 → J4S 11-28 03:37
PROVIDERS: ADMIT Internal Medicine; ATTEND Hospitalist
DX: F10.229 Alcohol dependence with intoxication, unspecified (principal); G93.41 Metabolic encephalopathy; E87.2 Acidosis; N17.9 Acute kidney failure, unspecified; Y90.8 Blood alcohol level of 240 mg/100 ml or more; E11.65 Type 2 diabetes mellitus with hyperglycemia; E11.22 Type 2 diabetes mellitus with diabetic chronic kidney disease; I12.9 Hypertensive chronic kidney disease with stage 1 through stage 4 chronic kidney disease, or unspecified chronic kidney disease; N18.2 Chronic kidney disease, stage 2 (mild); E86.1 Hypovolemia; E78.5 Hyperlipidemia, unspecified; K21.9 Gastro-esophageal reflux disease without esophagitis; N40.0 Benign prostatic hyperplasia without lower urinary tract symptoms; Z79.4 Long term (current) use of insulin; E03.9 Hypothyroidism, unspecified; Z86.73 Personal history of transient ischemic attack (TIA), and cerebral infarction without residual deficits; F32.9 Major depressive disorder, single episode, unspecified; N18.3 Chronic kidney disease, stage 3 (moderate)
CPT/HCPCS: 36415; 70450-TC; 71045-TC-FY; 76700-TC; 76775-TC; 76856-TC; 80048; 80053; 80061; 80076; 80307; 81003; 81015; 82009; 82803; 82962; 83036; 83605; 83690; 83721; 83735; 84100; 85025; 85610; 87081; 93005; 93010; 99285-25; J1644; J7030

== ENCOUNTER 2019-05-06 07:47 | Day surgery (SDC) | payer BC, OTHER ==
[2019-05-05 17:54] VITALS: BMI 30.5
[2019-05-06] MEDS ORDERED: DESFLURANE GAS 240 ML BOTTLE IH ONE (09:04)
[2019-05-06] MEDS ORDERED: PROPOFOL 20 ML ONE ×2 (09:05)
[2019-05-06] MEDS ORDERED: MIDAZOLAM HCL 2 MG/2 ML SINGLE DOSE VIAL ONE ×2 (09:05)
[2019-05-06] MEDS ORDERED: ceFAZolin SODIUM 1 GM VIAL IVPB ONE (09:52)
[2019-05-06] MEDS ORDERED: GENTAMICIN SO4 80 MG/2 ML VIAL ONE (09:53)
[2019-05-06] MEDS ORDERED: GENTAMICIN SO4 80 MG/2 ML VIAL IVPB ONE (09:55)
[2019-05-06] MEDS ORDERED: oxyCODONE HCL 5 MG TABLET PO PRN (10:38)
--- NOTE | 2019-05-06 10:40 | OP ---
Operative Note - Note: Operative Date: 05/06/19 Pre-Operative Diagnosis: BPH Operation: TURP Post-Operative Diagnosis: Same as Pre-op Surgeon: Newton Clarke Anesthesia: Spinal Operative Report Dictated: Yes
[2019-05-06] MEDS ORDERED: DEXTROSE 5%-0.45% SALINE 1,000 ML IV SCH (10:45)
[2019-05-06] MEDS ORDERED: ONDANSETRON 4 MG/2 ML VIAL IVPUSH PRN (11:15)
[2019-05-06] MEDS ORDERED: LACTATED RINGERS SOLUTION 1,000 ML IV SCH (11:15)
[2019-05-06] MEDS ORDERED: oxyCODONE HCL 5 MG TABLET ONE (12:20)
[2019-05-06] MEDS ORDERED: oxyCODONE HCL 5 MG TABLET PO ONE (12:22)
[2019-05-06 14:49] VITALS: BP 150/73; PULSE 79; TEMP 97.7
--- NOTE | 2019-05-06 16:36 | OP ---
DATE OF OPERATION: 05/06/2019 PREOPERATIVE DIAGNOSIS: Benign prostatic hypertrophy with obstructive urinary retention. POSTOPERATIVE DIAGNOSIS: Benign prostatic hypertrophy with obstructive urinary retention. PROCEDURE: Cystoscopy, bipolar transurethral resection of the prostate. SURGEON: Vilma Rojas MD INDICATION: Patient is a 73-year-old male with obstructive uropathy symptoms who elected to undergo bipolar TURP. Understood the risks of bleeding, infection, impotence, incontinence, stricture formation, potential need for additional procedure, potential persistence of urinary symptoms. DESCRIPTION OF PROCEDURE: After informed consent was obtained, patient was taken to the OR, placed supine on the table with cardiac monitoring administered. Spinal anesthetic was given. He was prepped and draped in the dorsal lithotomy position. The 26 sheath resectoscope was inserted with visual obturator. Anterior urethra was normal. Prostatic urethra was 4 cm and visually occlusive with an enlarged median bar. Bladder was visualized. No tumors or stones noted to bladder. Using the bipolar loop, the median bar was taken out 1st until this was flush was the bladder neck and then the lateral tissue was taken down circumferentially, but there was no resection within 1 cm of the verumontanum to minimize chance of incontinence. All bleeding sites were cauterized. All prostate tissue was removed with an Ellik evacuator. At the end of the procedure, with the resectoscope situated looking into the bladder, a wide open channel was created. There was no injury to adjacent structures. There was bilateral ureteral efflux. Resectoscope was then removed and then a 24-[place] 3-way Caban was then placed to straight drainage. [place]-tinged urine was retrieved. Patient was awoken from anesthesia and transferred to recovery in stable condition. There were no complications. Estimated blood loss was minimal. VILMA ROJAS M.D. [id number]
--- NOTE | 2019-05-11 15:28 | PATH ---
Surgical Pathology Report Patient Name: ALISHA CROSS [facility]. Rec. #: [id number] /Age/Gender: 1945 (Age: 73) / M Account: [id number] Location: [facility] Taken: 05/06/2019 Received: 05/06/2019 Reported: 05/11/2019 Physicians: Newton Clarke M.D. Specimen(s) Received PROSTATE TISSUE Clinical History BPH Final Diagnosis PROSTATE TISSUE, TRANSURETHRAL RESECTION OF PROSTATE: BENIGN PROSTATIC TISSUE WITH FOCAL CHRONIC INFLAMMATION, CYSTIC CHANGES, BASAL CELL AND STROMAL HYPERPLASIA. UROTHELIAL MUCOSA WITH CYSTITIS CYSTICA AND GLANDULARIS. Comment: Immunohistochemical stains performed and interpreted at [facility] show basal cells are highlighted by [id number]. Positive and negative controls (internal if applicable) show appropriate results. Electronically Signed Izabel Lovett M.D. Gross Description Received in formalin labeled "prostate tissue," is an 8 g, 7.0 x 6.5 x 0.5 cm aggregate of multiple alonso, irregular, firm to rubbery portions of tissue, consistent with prostate chips. The specimen is entirely submitted in 8 cassettes. DL/05/06/2019 saudi05/06/2019
== END 2019-05-06 14:45 | disposition home or self-care (01) ==
LOC: JASU-SURG 07:47
PROVIDERS: ATTEND Urology
PROC: 0VT08ZZ Resection of Prostate, Via Natural or Artificial Opening Endoscopic (ICD-10-PCS; principal; 2019-05-06 10:00)
DX: N40.1 Benign prostatic hyperplasia with lower urinary tract symptoms (principal); R33.8 Other retention of urine
CPT/HCPCS: 82962; 88305-TC; 88342-TC; 94760